=== PATIENT | female | born 1970 | race Hispanic/Latino ===

== ENCOUNTER 2017-05-26 08:17 | Day surgery (SDC) | payer MEDICARE, MEDICAID ==
[2017-05-20 15:27] VITALS: BMI 38.0
[2017-05-26 09:17] VITALS: RESP 14
[2017-05-26] MEDS ORDERED: Propofol 10 mg/ml Inj (20 ML) ONE ×2 (10:45→11:19)
[2017-05-26] MEDS ORDERED: Sodium Chloride 0.9% 1,000 ML IV SCH (11:45)
[2017-05-26 12:05] VITALS: PULSE 72
[2017-05-26 12:41] VITALS: BP 92/54; TEMP 98; O2SAT 99
== END 2017-05-26 13:02 | disposition home or self-care (01) ==
LOC: ENDO 08:17
PROVIDERS: ATTEND Internal Medicine
DX: K64.8 Other hemorrhoids (principal); K59.00 Constipation, unspecified; K30 Functional dyspepsia; R10.9 Unspecified abdominal pain; I10 Essential (primary) hypertension; F41.9 Anxiety disorder, unspecified; G47.30 Sleep apnea, unspecified; F32.89 Other specified depressive episodes; M79.7 Fibromyalgia; K80.80 Other cholelithiasis without obstruction; Z90.710 Acquired absence of both cervix and uterus; Z85.43 Personal history of malignant neoplasm of ovary; Z92.21 Personal history of antineoplastic chemotherapy; Z80.9 Family history of malignant neoplasm, unspecified; Z80.0 Family history of malignant neoplasm of digestive organs
CPT/HCPCS: 45378; J2704; J7040

== ENCOUNTER 2017-12-19 19:12 | Inpatient (IN) | payer MEDICAID, MEDICARE ==
[2017-12-19 19:12] VITALS: BMI 38.0
[2017-12-19] MEDS ORDERED: Morphine 2 mg/ml ISec IVP STA (19:58)
[2017-12-19] MEDS ORDERED: Sodium Chloride 0.9% 1,000 ML IV STA (19:58)
--- NOTE | 2017-12-19 20:01 | ED PDOC ---
Arrival/HPI - General Chief Complaint: Abdominal Pain Time Seen by Provider: 12/19/17 19:46 Historian: Patient - History of Present Illness Narrative History of Present Illness (Text): 12/19/17 19:58 47 year old female, whose past medical history includes ovarian cancer, hypertension, or fibromyalgia, who presents to the emergency department complaining of constant abdominal pain x 2 days. Patient notes associated vomiting. Patient denies any fever, chills, chest pain, shortness of breath, diarrhea, back pain, neck pain, headache, dizziness, or any other complaints. Time/Duration: < week (2 days) Symptom Onset: Gradual Symptom Course: Unchanged Activities at Onset: Light Context: Home Past Medical History - Provider Review Nursing Documentation Reviewed: Yes - Infectious Disease Hx of Infectious Diseases: None - Tetanus Immunization Tetanus Immunization: Up to Date - Cardiac Hx Pacemaker: No - Neurological Hx Paralysis: No - Hematological/Oncological Hx Blood Transfusions: No - Musculoskeletal/Rheumatological Hx Musculoskeletal Disorders: Yes - Gastrointestinal Hx Diverticulitis: Yes - Genitourinary/Gynecological Other/Comment: ovarian ca - Psychiatric Hx Emotional Abuse: No Hx Physical Abuse: No Hx Substance Use: No - Anesthesia Hx Anesthesia Reactions: No Hx Malignant Hyperthermia: No - Suicidal Assessment Feels Threatened In Home Enviroment: No Family/Social History - Physician Review Nursing Documentation Reviewed: Yes Family/Social History: Unknown Family HX Smoking Status: Unknown If Ever Smoked Hx Alcohol Use: No Hx Substance Use: No Hx Substance Use Treatment: No Allergies/Home Meds Allergies/Adverse Reactions: Allergies No Known Allergies Allergy (Verified 06/08/13 12:06) Home Medications: Home Meds Medication Instructions Recorded Confirmed Amitriptyline [Elavil] 50 mg PO DAILY 05/20/17 05/26/17 Clonazepam [Klonopin] 0.5 mg PO HS 05/20/17 05/26/17 DULoxetine [Cymbalta] 20 mg PO DAILY 05/20/17 05/26/17 Estradiol 0.5 mg PO DAILY 05/20/17 05/26/17 Fluticasone Propionate [Flonase] 1 actuation NS DAILY 05/20/17 05/26/17 Gabapentin [Neurontin] 800 mg PO DAILY 05/20/17 05/26/17 Lisinopril/Hydrochlorothiazide 1 each PO DAILY 05/20/17 05/26/17 [Lisinopril-Hctz 10-12.5 mg Tab] Naproxen [Naprosyn] 500 mg PO BID 05/20/17 05/26/17 Omeprazole 40 mg PO DAILY 05/20/17 05/26/17 Review of Systems - Physician Review All systems were reviewed & negative as marked: Yes - Review of Systems Constitutional: Normal Eyes: Normal ENT: Normal Respiratory: Normal. absent: SOB, Cough Cardiovascular: Normal. absent: Chest Pain Gastrointestinal: Abdominal Pain, Vomiting. absent: Diarrhea Genitourinary Female: Normal. absent: Dysuria, Frequency, Hematuria Musculoskeletal: Normal. absent: Back Pain, Neck Pain Skin: Normal. absent: Rash Neurological: Normal. absent: Headache, Dizziness Endocrine: Normal Hemo/Lymphatic: Normal Psychiatric: Normal Physical Exam Vital Signs Reviewed: Yes Vital Signs Temp Pulse Resp BP Pulse Ox 12/19/17 19:42 100.4 F H 105 H 18 109/73 99 Temperature: Febrile Blood Pressure: Normal Pulse: Tachycardic Respiratory Rate: Normal Appearance: Positive for: Well-Appearing, Non-Toxic, Comfortable Pain Distress: None Mental Status: Positive for: Alert and Oriented X 3 - Systems Exam Head: Present: Atraumatic, Normocephalic Pupils: Present: PERRL Extroacular Muscles: Present: EOMI Conjunctiva: Present: Normal Mouth: Present: Moist Mucous Membranes Neck: Present: Normal Range of Motion Respiratory/Chest: Present: Clear to Auscultation, Good Air Exchange. No: Respiratory Distress, Accessory Muscle Use Cardiovascular: Present: Regular Rate and Rhythm, Normal S1, S2. No: Murmurs Abdomen: Present: Tenderness (RUQ tenderness; greater than RLQ). No: Distention, Peritoneal Signs Back: Present: Normal Inspection Upper Extremity: Present: Normal Inspection. No: Cyanosis, Edema Lower Extremity: Present: Normal Inspection. No: Edema Neurological: Present: GCS=15, CN II-XII Intact, Speech Normal Skin: Present: Warm, Dry, Normal Color. No: Rashes Psychiatric: Present: Alert, Oriented x 3, Normal Insight, Normal Concentration Medical Decision Making ED Course and Treatment: 12/19/17 20:02 Impression: 47 year old female presents to the Emergency department complaining of constant abdominal pain x 2 days. Plan: -- VBG -- EKG -- Labs -- Morphine -- Sodium Chloride -- Zofran -- Blood Culture -- Urinalysis -- US gallbladder/Pancreas -- Reassess and disposition Progress Notes: 12/19/17 20:46 EKG reviewed, shows Sinus tachycardia at 102 bpm. Incomplete right bundle branch block. Non-specific ST/T wave changes EXAM: US Gallbladder/pancreas SIGNED ON: 12/19/17 BY: Jimbo Cross M.D. IMPRESSION: Enlarged liver with fatty infiltration. Multiple gallstones present. Calculus suspected neck gallbladder. No significant gallbladder wall thickening or pericholecystic fluid. Clinical correlation advised. 12/20/17 00:47 Case discussed with medical director/head team physician, neurosurgical nurse, and Dr. Mejias who is aware and agrees with the plan. Accepts patient into hospitalist service. - Lab Interpretations I have reviewed the lab results: Yes - RAD Interpretation Radiology Orders: 12/19/17 19:52 CHEST PORTABLE [RAD] Stat GALLBLADDER & PANCREAS [US] Stat - EKG Interpretation Interpreted by ED Physician: Yes Type: 12 lead EKG - Scribe Statement The provider has reviewed the documentation as recorded by the Scribadonis Peña All medical record entries made by the Kathibe were at my direction and personally dictated by me. I have reviewed the chart and agree that the record accurately reflects my personal performance of the history, physical exam, medical decision making, and the department course for this patient. I have also personally directed, reviewed, and agree with the discharge instructions and disposition. Disposition/Present on Arrival - Present on Arrival Any Indicators Present on Arrival: No History of DVT/PE: No History of Uncontrolled Diabetes: No Urinary Catheter: No History of Decub. Ulcer: No History Surgical Site Infection Following: None - Disposition Have Diagnosis and Disposition been Completed?: Yes Diagnosis: Biliary colic, Intractable abdominal pain Disposition: HOSPITALIZED Disposition Time: 01:02 Patient Problems: Current Active Problems Problem Status Onset Biliary colic Acute Intractable abdominal pain Acute Condition: STABLE
[2017-12-19 21:48] LABS: HEMOGLOBIN 11.4 g/dL (12.0-16.0); MEAN CELL VOLUME 85.4 fl (80.0-105.0); MEAN CORPUSCULAR HEMOGLOBIN 28.1 pg (25.0-35.0); MEAN CORPUSCULAR HGB CONC 32.9 g/dl (31.0-37.0); MEAN PLATELET VOLUME 9.4 fl (7.0-11.0); RBC 4.05 10^6/uL (3.5-6.1); RED CELL DISTRIBUTION WIDTH 15.5 % (11.5-14.5); WHITE BLOOD COUNT 7.1 10^3/ul (4.5-11.0)
[2017-12-19 21:54] LABS: ALB/GLOB RATIO 1.3 (1.1-1.8); ALT/SGPT 43 U/L (7-56); AST/SGOT 31 U/L (14-36); BLOOD UREA NITROGEN 21 mg/dL (7-21); CALCIUM 9.5 mg/dL (8.4-10.5); GFR NON-AFRICAN AMERICAN > 60; LIPASE 45 U/L (23-300)
[2017-12-19 22:16] LABS: VENOUS BLOOD GAS BASE EXCESS 4.3 mmol/L (0.0-2.0); VENOUS BLOOD GAS PO2 29 mm/Hg (30-55); VENOUS BLOOD PH 7.41 (7.32-7.43)
[2017-12-19 22:19] LABS: URINE APPEARANCE CLEAR (CLEAR); URINE BILIRUBIN NEGATIVE (NEGATIVE); URINE BLOOD NEGATIVE (NEGATIVE); URINE COLOR LIGHT YELLOW (YELLOW); URINE GLUCOSE (UA) NEGATIVE (NEGATIVE); URINE LEUKOCYTE ESTERASE NEGATIVE Leu/uL (NEGATIVE); URINE PROTEIN TRACE mg/dL (<30 mg/dL); URINE UROBILINOGEN 0.2 E.U./dL (<1 E.U./dL)
[2017-12-19 22:24] LABS: URINE BACTERIA MANY (NEG); URINE RBC 0 - 2 /hpf (0-2)
[2017-12-19 22:25] LABS: URINE AMORPHOUS SEDIMENT FEW; URINE EPITHELIAL CELLS MANY /hpf (0-5)
[2017-12-19] MEDS ORDERED: Potassium Chloride 20 mEq ER Tab PO STA (23:33)
[2017-12-19] MEDS ORDERED: cefTRIAXone 1 gm 1 GM/100 ML BAG IV STA (23:38)
[2017-12-19] MEDS ORDERED: metroNIDAZOLE IV 500 mg/100 ml 500 MG/100 ML BAG IV STA (23:39)
[2017-12-20] MEDS ORDERED: Morphine 4 mg/ml ISec IVP STA (00:53)
[2017-12-20] MEDS ORDERED: Sodium Chloride 0.9% 1,000 ML IV SCH (01:00)
--- NOTE | 2017-12-20 01:32 | CP.PCM.HP ---
History of Present Illness - History of Present Illness History of Present Illness: HISTORY & PHYSICAL NOTE FOR HOSPITALIST TEAM Past Patient History - Infectious Disease Hx of Infectious Diseases: None - Tetanus Immunizations Tetanus Immunization: Up to Date - Past Social History Smoking Status: Unknown If Ever Smoked - CARDIAC Hx Pacemaker: No - NEUROLOGICAL Hx Paralysis: No - HEMATOLOGICAL/ONCOLOGICAL Hx Blood Transfusions: No - MUSCULOSKELETAL/RHEUMATOLOGICAL Hx Musculoskeletal Disorders: Yes - GASTROINTESTINAL Hx Diverticulitis: Yes - GENITOURINARY/GYNECOLOGICAL Other/Comment: ovarian ca - PSYCHIATRIC Hx Emotional Abuse: No Hx Physical Abuse: No Hx Substance Use: No - SURGICAL HISTORY Hx Surgeries: Yes - ANESTHESIA Hx Anesthesia Reactions: No Hx Malignant Hyperthermia: No Meds Allergies/Adverse Reactions: Allergies Allergy/AdvReac Type Severity Reaction Status Date / Time No Known Allergies Allergy Verified 06/08/13 12:06 Results - Vital Signs Recent Vital Signs: Last Vital Signs Temp 100.4 F H 12/19/17 19:42 Pulse 105 H 12/19/17 19:42 Resp 18 12/19/17 19:42 BP 109/73 12/19/17 19:42 Pulse Ox 99 12/19/17 19:42 - Labs Result Diagrams: 12/19/17 20:30 12/19/17 20:30 Labs: Laboratory Results - last 24 hr 12/19/17 12/19/17 12/19/17 20:30 20:30 20:30 WBC 7.1 RBC 4.05 Hgb 11.4 L Hct 34.6 L MCV 85.4 D MCH 28.1 MCHC 32.9 RDW 15.5 H Plt Count 198 MPV 9.4 pO2 29 L VBG pH 7.41 VBG pCO2 47.0 VBG HCO3 29.8 H VBG Total CO2 31.2 H VBG O2 Sat (Calc) 61.7 VBG Base Excess 4.3 H VBG Potassium 3.5 L Sodium 137 137.0 Chloride 100 104.0 Glucose 99 Lactate 1.4 FiO2 21.0 Potassium 3.4 L Carbon Dioxide 29 Anion Gap 11 BUN 21 Creatinine 0.7 Est GFR ( Amer) > 60 Est GFR (Non-Af Amer) > 60 Random Glucose 100 Calcium 9.5 Total Bilirubin 0.5 AST 31 ALT 43 Alkaline Phosphatase 71 Total Protein 7.1 Albumin 4.0 Globulin 3.1 Albumin/Globulin Ratio 1.3 Lipase 45 Venous Blood Potassium 3.5 L Urine Color Urine Appearance Urine pH Ur Specific [place] Urine Protein Urine Glucose (UA) Urine Ketones Urine Blood Urine Nitrate Urine Bilirubin Urine Urobilinogen Ur Leukocyte Esterase Urine RBC Urine WBC Ur Epithelial Cells Amorphous Sediment Urine Bacteria Urine Other 12/19/17 21:30 WBC RBC Hgb Hct MCV MCH MCHC RDW Plt Count MPV pO2 VBG pH VBG pCO2 VBG HCO3 VBG Total CO2 VBG O2 Sat (Calc) VBG Base Excess VBG Potassium Sodium Chloride Glucose Lactate FiO2 Potassium Carbon Dioxide Anion Gap BUN Creatinine Est GFR ( Amer) Est GFR (Non-Af Amer) Random Glucose Calcium Total Bilirubin AST ALT Alkaline Phosphatase Total Protein Albumin Globulin Albumin/Globulin Ratio Lipase Venous Blood Potassium Urine Color Light yellow Urine Appearance Clear Urine pH 7.0 Ur Specific [place] 1.010 Urine Protein Trace H Urine Glucose (UA) Negative Urine Ketones Negative Urine Blood Negative Urine Nitrate Negative Urine Bilirubin Negative Urine Urobilinogen 0.2 Ur Leukocyte Esterase Negative Urine RBC 0 - 2 Urine WBC 1 - 3 Ur Epithelial Cells Many Amorphous Sediment Few Urine Bacteria Many Urine Other Uyeast
--- NOTE | 2017-12-20 01:47 | CP.PCM.HP ---
<Aruna Cleary - Last Filed: 12/20/17 03:03> History of Present Illness - History of Present Illness History of Present Illness: HISTORY & PHYSICAL NOTE FOR HOSPITALIST TEAM Aruna Cleary D.O. PGY-1 CC: Severe RUQ pain since yesterday HPI: 47 y/o F with PMHx of PMHx ovarian cancer in 1999 s/p chemotherapy, previous post-op complications of excessive bleeding, HTN & fibromyalgia presents to [facility] with complaints of severe, intractable, constant, 10/10 RUQ abdominal pain that had started yesterday not alleviated by anything. She reports never having this specific kind of pain previously. She reports that she had a radical hysterectomy in 2001 when she suffered post-op complications for "blood too thin" and the hospital staff at [facility] in [place] needed to "call a code". She reports nausea and vomiting with about 10 episodes of yellowish vomiting yesterday. She endorses chills and previous substernal chest pain without radiation or associated diaphoresis. She also reports 50 pounds of intentional weight loss over the past month as well as constipation. She has been followin with her PMD and child care development specialist, with followup CA-125 levels without elevations. She denies chills, headache, palpitations, shortness of breath, diarrhea, dysuria. PMD: Dr. Ping soto PMH: ovarian cancer in 1999 s/p chemotherapy, previous post-op complications of excessive bleeding, HTN & fibromyalgia ALL: NKDA PSH: radical hysterectomy 2001, umbilical hernia repair, inguinal hernia repair SH: former 1 pack year smoker. occasional alcohol use Hosp: denies recent FH: Mother- stomach cancer 75 y/o, Father- Pancreatic cancer- 74 y/[address] Abdomen: IMPRESSION: Enlarged liver with fatty infiltration. Multiple gall stones present. Calculus suspected neck gallbladder. No significant gallbladder wall thickening or pericholecystic fluid. Clinical correlation advised. Review of Systems - Review of Systems Review of Systems: as per HPI Past Patient History - Infectious Disease Hx of Infectious Diseases: None - Tetanus Immunizations Tetanus Immunization: Up to Date - Past Social History Smoking Status: Unknown If Ever Smoked - CARDIAC Hx Pacemaker: No - NEUROLOGICAL Hx Paralysis: No - HEMATOLOGICAL/ONCOLOGICAL Hx Blood Transfusions: No - MUSCULOSKELETAL/RHEUMATOLOGICAL Hx Musculoskeletal Disorders: Yes - GASTROINTESTINAL Hx Diverticulitis: Yes - GENITOURINARY/GYNECOLOGICAL Other/Comment: ovarian ca - PSYCHIATRIC Hx Emotional Abuse: No Hx Physical Abuse: No Hx Substance Use: No - SURGICAL HISTORY Hx Surgeries: Yes - ANESTHESIA Hx Anesthesia Reactions: No Hx Malignant Hyperthermia: No Meds Allergies/Adverse Reactions: Allergies Allergy/AdvReac Type Severity Reaction Status Date / Time No Known Allergies Allergy Verified 06/08/13 12:06 Physical Exam - Constitutional Appears: Well, Non-toxic, No Acute Distress - Head Exam Head Exam: NORMAL INSPECTION, NORMOCEPHALIC - Eye Exam Eye Exam: EOMI, Normal appearance - ENT Exam ENT Exam: Mucous Membranes Moist, Normal Exam - Neck Exam Neck exam: Positive for: Normal Inspection. Negative for: Meningismus - Respiratory Exam Respiratory Exam: Clear to Auscultation Bilateral, NORMAL BREATHING PATTERN - Cardiovascular Exam Cardiovascular Exam: Tachycardia, +S1, +S2 - GI/Abdominal Exam GI & Abdominal Exam: Distended, Guarding, Soft, Tenderness Additional comments: + robertson sign - Extremities Exam Extremities exam: Positive for: normal inspection. Negative for: calf tenderness - Back Exam Back exam: CVA tenderness (R), NORMAL INSPECTION. absent: CVA tenderness (L) - Neurological Exam Neurological exam: Alert, Oriented x3 - Psychiatric Exam Psychiatric exam: Normal Affect, Normal Mood - Skin Skin Exam: Dry, Intact, Warm Results - Vital Signs Recent Vital Signs: Last Vital Signs Temp 100.4 F H 12/19/17 19:42 Pulse 105 H 12/19/17 19:42 Resp 18 12/19/17 19:42 BP 109/73 12/19/17 19:42 Pulse Ox 99 12/19/17 19:42 - Labs Result Diagrams: 12/19/17 20:30 12/19/17 20:30 Labs: Laboratory Results - last 24 hr 12/19/17 12/19/17 12/19/17 20:30 20:30 20:30 WBC 7.1 RBC 4.05 Hgb 11.4 L Hct 34.6 L MCV 85.4 D MCH 28.1 MCHC 32.9 RDW 15.5 H Plt Count 198 MPV 9.4 pO2 29 L VBG pH 7.41 VBG pCO2 47.0 VBG HCO3 29.8 H VBG Total CO2 31.2 H VBG O2 Sat (Calc) 61.7 VBG Base Excess 4.3 H VBG Potassium 3.5 L Sodium 137 137.0 Chloride 100 104.0 Glucose 99 Lactate 1.4 FiO2 21.0 Potassium 3.4 L Carbon Dioxide 29 Anion Gap 11 BUN 21 Creatinine 0.7 Est GFR ( Amer) > 60 Est GFR (Non-Af Amer) > 60 Random Glucose 100 Calcium 9.5 Total Bilirubin 0.5 AST 31 ALT 43 Alkaline Phosphatase 71 Total Protein 7.1 Albumin 4.0 Globulin 3.1 Albumin/Globulin Ratio 1.3 Lipase 45 Venous Blood Potassium 3.5 L Urine Color Urine Appearance Urine pH Ur Specific [place] Urine Protein Urine Glucose (UA) Urine Ketones Urine Blood Urine Nitrate Urine Bilirubin Urine Urobilinogen Ur Leukocyte Esterase Urine RBC Urine WBC Ur Epithelial Cells Amorphous Sediment Urine Bacteria Urine Other 12/19/17 21:30 WBC RBC Hgb Hct MCV MCH MCHC RDW Plt Count MPV pO2 VBG pH VBG pCO2 VBG HCO3 VBG Total CO2 VBG O2 Sat (Calc) VBG Base Excess VBG Potassium Sodium Chloride Glucose Lactate FiO2 Potassium Carbon Dioxide Anion Gap BUN Creatinine Est GFR ( Amer) Est GFR (Non-Af Amer) Random Glucose Calcium Total Bilirubin AST ALT Alkaline Phosphatase Total Protein Albumin Globulin Albumin/Globulin Ratio Lipase Venous Blood Potassium Urine Color Light yellow Urine Appearance Clear Urine pH 7.0 Ur Specific [place] 1.010 Urine Protein Trace H Urine Glucose (UA) Negative Urine Ketones Negative Urine Blood Negative Urine Nitrate Negative Urine Bilirubin Negative Urine Urobilinogen 0.2 Ur Leukocyte Esterase Negative Urine RBC 0 - 2 Urine WBC 1 - 3 Ur Epithelial Cells Many Amorphous Sediment Few Urine Bacteria Many Urine Other Uyeast Assessment & Plan - Assessment and Plan (Free Text) Assessment: 47 y/o F with PMHx of PMHx ovarian cancer in 1999 s/p chemotherapy, previous post-op complications of excessive bleeding, HTN & fibromyalgia presents to [facility] with complaints of severe, intractable, constant, 10/10 abdominal pain, most notably in the RUQ. Pt was found to have multiple gallstones present with a calculus suspected neck gallbladder. No significant gallbladder wall thickening or pericholecystic fluid. In the ED, she was started on rocephin/flagyl, morphine, zofran and a bolus of NS. Oral potassium was given for repletion. Surgery team was consulted, who recommended CT abdomen for further evaluation. Pt on NPO diet and admitted to med/surg. Plan: Abdominal Pain Likely secondary to cholelithiasis r/o hernia incarceration/SBO/perforation Start rocephin/flagyl for empiric coverage [place] morphine deric prn Start zofran IVP prn Continue NaCl @100mls/hr NPO diet except meds f/u CT abdomen f/u HIDA scan Consult surgery. Appreciate recs Consult GI. Appreciate recs Hypokalemia repleted po in ED Start IV KCl 10meq x 2 f/u BMP Constipation start colace bid HTN continue home lisinopril/hctz DVT/GI ppx: Hold anticoagulant for possible surgery. SCD/ <RandellMarimarda - Last Filed: 12/20/17 03:13> Present on Admission - Present on Admission Any Indicators Present on Admission: No History of DVT/PE: No History of Uncontrolled Diabetes: No Urinary Catheter: No Decubitus Ulcer Present: No Results - Vital Signs Recent Vital Signs: Last Vital Signs Temp 98 F 12/20/17 02:04 Pulse 98 H 12/20/17 02:04 Resp 18 12/20/17 02:04 BP 100/65 12/20/17 02:04 Pulse Ox 96 12/20/17 02:04 - Labs Result Diagrams: 12/19/17 20:30 12/19/17 20:30 Labs: Laboratory Results - last 24 hr 12/19/17 12/19/17 12/19/17 20:30 20:30 20:30 WBC 7.1 RBC 4.05 Hgb 11.4 L Hct 34.6 L MCV 85.4 D MCH 28.1 MCHC 32.9 RDW 15.5 H Plt Count 198 MPV 9.4 pO2 29 L VBG pH 7.41 VBG pCO2 47.0 VBG HCO3 29.8 H VBG Total CO2 31.2 H VBG O2 Sat (Calc) 61.7 VBG Base Excess 4.3 H VBG Potassium 3.5 L Sodium 137 137.0 Chloride 100 104.0 Glucose 99 Lactate 1.4 FiO2 21.0 Potassium 3.4 L Carbon Dioxide 29 Anion Gap 11 BUN 21 Creatinine 0.7 Est GFR ( Amer) > 60 Est GFR (Non-Af Amer) > 60 Random Glucose 100 Calcium 9.5 Total Bilirubin 0.5 AST 31 ALT 43 Alkaline Phosphatase 71 Total Protein 7.1 Albumin 4.0 Globulin 3.1 Albumin/Globulin Ratio 1.3 Lipase 45 Venous Blood Potassium 3.5 L Urine Color Urine Appearance Urine pH Ur Specific [place] Urine Protein Urine Glucose (UA) Urine Ketones Urine Blood Urine Nitrate Urine Bilirubin Urine Urobilinogen Ur Leukocyte Esterase Urine RBC Urine WBC Ur Epithelial Cells Amorphous Sediment Urine Bacteria Urine Other 12/19/17 21:30 WBC RBC Hgb Hct MCV MCH MCHC RDW Plt Count MPV pO2 VBG pH VBG pCO2 VBG HCO3 VBG Total CO2 VBG O2 Sat (Calc) VBG Base Excess VBG Potassium Sodium Chloride Glucose Lactate FiO2 Potassium Carbon Dioxide Anion Gap BUN Creatinine Est GFR ( Amer) Est GFR (Non-Af Amer) Random Glucose Calcium Total Bilirubin AST ALT Alkaline Phosphatase Total Protein Albumin Globulin Albumin/Globulin Ratio Lipase Venous Blood Potassium Urine Color Light yellow Urine Appearance Clear Urine pH 7.0 Ur Specific [place] 1.010 Urine Protein Trace H Urine Glucose (UA) Negative Urine Ketones Negative Urine Blood Negative Urine Nitrate Negative Urine Bilirubin Negative Urine Urobilinogen 0.2 Ur Leukocyte Esterase Negative Urine RBC 0 - 2 Urine WBC 1 - 3 Ur Epithelial Cells Many Amorphous Sediment Few Urine Bacteria Many Urine Other [place] Attending/Attestation - Attestation Notes (Text): 12/20/17 03:08 Patient was seen when she was in bed # 2 in the ER. Medical record was reviewed. Agree with history, physical examination, assessment and plan. This 47 year old woman admitted with Abdominal pain-RUQ. Chills Cholelithiasis A cholecystitis Has PMH: HTN FIBROMYALGIA OVARIAN CANCER S/P surgery S/p chemotherapy Anxiety EVA Depression Former smoker. Hystrectomy-2001 Herniorrhaphy. Family history -Pancreatic cancer-Father Family history stomach cancer-Mother.
[2017-12-20] MEDS ORDERED: Iohexol 240 (50 ml) ONE (02:34)
--- NOTE | 2017-12-20 02:50 | CP.PCM.CON ---
<Ric Mccarthy - Last Filed: 12/20/17 02:35> History of Present Illness - History of Present Illness History of Present Illness: General Surgery Consult Note for Dr. Gonzalez This is a 47F with a PMH of Fibromyalgia, Ovarian CA, Gastritis, and HTN who presents to the ED today with abdominal pain since thursday. She reports that it woke her up from sleep at 4am. She reports nothing has mad it better and nothing has made it worse. She reports that when the pain started it was associated with nausea and vomiting however she has not had any emesis since it started. Her last BM and flatus was thursday. She reports this has never happened to her before. She denied subjective fevers at home, chest pain or SOB. In the ED pt underwent a CXR which was negative for subdiaphragmatic air and an US that was significant for GB stones PMH: Fibromyalgia, Ovarian CA, Gastritis, and HTN PSH: Total abdominal hysterectomy/oopherectomy ALL: NKDA Social: Denies vices Review of Systems - Review of Systems All systems: reviewed and no additional remarkable complaints except - Constitutional Constitutional: Anorexia. absent: Chills, Fever - EENT Eyes: absent: Blurred Vision, Change in Vision Ears: absent: Ear Pain, Tinnitus - Cardiovascular Cardiovascular: absent: Chest Pain, Dyspnea - Respiratory Respiratory: absent: Dyspnea, Dyspnea on Exertion - Gastrointestinal Gastrointestinal: Abdominal Pain, Nausea. absent: Cramping, Diarrhea, Vomiting - Genitourinary Genitourinary: absent: Difficulty Urinating, Dysuria, Hematuria, Pyuria - Integumentary Integumentary: absent: Bleeding Lesions Past Patient History - Infectious Disease Hx of Infectious Diseases: None - Tetanus Immunizations Tetanus Immunization: Up to Date - Past Social History Smoking Status: Unknown If Ever Smoked - CARDIAC Hx Pacemaker: No - NEUROLOGICAL Hx Paralysis: No - HEMATOLOGICAL/ONCOLOGICAL Hx Blood Transfusions: No - MUSCULOSKELETAL/RHEUMATOLOGICAL Hx Musculoskeletal Disorders: Yes - GASTROINTESTINAL Hx Diverticulitis: Yes - GENITOURINARY/GYNECOLOGICAL Other/Comment: ovarian ca - PSYCHIATRIC Hx Emotional Abuse: No Hx Physical Abuse: No Hx Substance Use: No - SURGICAL HISTORY Hx Surgeries: Yes - ANESTHESIA Hx Anesthesia Reactions: No Hx Malignant Hyperthermia: No Meds Allergies/Adverse Reactions: Allergies Allergy/AdvReac Type Severity Reaction Status Date / Time No Known Allergies Allergy Verified 06/08/13 12:06 - Medications Medications: Current Medications Docusate Sodium (Colace) 100 mg PO BID [facility] Sodium Chloride (Sodium Chloride 0.9%) 1,000 mls @ 100 mls/hr IV .Q10H [facility] Metronidazole (Flagyl) 500 mg in 100 mls @ 100 mls/hr IVPB Q8 [facility]; Protocol Potassium Chloride (Potassium Chloride 10 Meq/100 Ml) 10 meq in 100 mls @ 50 mls/hr IVPB Q2H [facility] Stop: 12/20/17 05:44 Morphine Sulfate (Morphine) 2 mg IVP Q4H PRN PRN Reason: Pain, moderate (4-7) Ondansetron HCl (Zofran Inj) 4 mg IVP Q4H PRN PRN Reason: Nausea/Vomiting Last Admin: 12/20/17 01:57 Dose: 4 mg Physical Exam - Constitutional Appears: Non-toxic, No Acute Distress - Head Exam Head Exam: ATRAUMATIC, NORMOCEPHALIC - Eye Exam Eye Exam: EOMI, Normal appearance - ENT Exam ENT Exam: Mucous Membranes Moist - Respiratory Exam Respiratory Exam: NORMAL BREATHING PATTERN - Cardiovascular Exam Cardiovascular Exam: +S1, +S2 - GI/Abdominal Exam GI & Abdominal Exam: Distended, Soft. absent: Guarding, Hernia, Rigid Additional comments: Midline scar, diffusely tender most tender over epigastrium and right side of abdomen, CVA tenderness, softly distended - Neurological Exam Neurological exam: Alert, Oriented x3 - Psychiatric Exam Psychiatric exam: Normal Affect, Normal Mood - Skin Skin Exam: Dry, Intact Results - Vital Signs Recent Vital Signs: Last Vital Signs Temp 98 F 12/20/17 02:04 Pulse 98 H 12/20/17 02:04 Resp 18 12/20/17 02:04 BP 100/65 12/20/17 02:04 Pulse Ox 96 12/20/17 02:04 - Labs Result Diagrams: 12/19/17 20:30 12/19/17 20:30 Labs: Laboratory Results - last 24 hr 12/19/17 12/19/17 12/19/17 20:30 20:30 20:30 WBC 7.1 RBC 4.05 Hgb 11.4 L Hct 34.6 L MCV 85.4 D MCH 28.1 MCHC 32.9 RDW 15.5 H Plt Count 198 MPV 9.4 pO2 29 L VBG pH 7.41 VBG pCO2 47.0 VBG HCO3 29.8 H VBG Total CO2 31.2 H VBG O2 Sat (Calc) 61.7 VBG Base Excess 4.3 H VBG Potassium 3.5 L Sodium 137 137.0 Chloride 100 104.0 Glucose 99 Lactate 1.4 FiO2 21.0 Potassium 3.4 L Carbon Dioxide 29 Anion Gap 11 BUN 21 Creatinine 0.7 Est GFR ( Amer) > 60 Est GFR (Non-Af Amer) > 60 Random Glucose 100 Calcium 9.5 Total Bilirubin 0.5 AST 31 ALT 43 Alkaline Phosphatase 71 Total Protein 7.1 Albumin 4.0 Globulin 3.1 Albumin/Globulin Ratio 1.3 Lipase 45 Venous Blood Potassium 3.5 L Urine Color Urine Appearance Urine pH Ur Specific [place] Urine Protein Urine Glucose (UA) Urine Ketones Urine Blood Urine Nitrate Urine Bilirubin Urine Urobilinogen Ur Leukocyte Esterase Urine RBC Urine WBC Ur Epithelial Cells Amorphous Sediment Urine Bacteria Urine Other 12/19/17 21:30 WBC RBC Hgb Hct MCV MCH MCHC RDW Plt Count MPV pO2 VBG pH VBG pCO2 VBG HCO3 VBG Total CO2 VBG O2 Sat (Calc) VBG Base Excess VBG Potassium Sodium Chloride Glucose Lactate FiO2 Potassium Carbon Dioxide Anion Gap BUN Creatinine Est GFR ( Amer) Est GFR (Non-Af Amer) Random Glucose Calcium Total Bilirubin AST ALT Alkaline Phosphatase Total Protein Albumin Globulin Albumin/Globulin Ratio Lipase Venous Blood Potassium Urine Color Light yellow Urine Appearance Clear Urine pH 7.0 Ur Specific [place] 1.010 Urine Protein Trace H Urine Glucose (UA) Negative Urine Ketones Negative Urine Blood Negative Urine Nitrate Negative Urine Bilirubin Negative Urine Urobilinogen 0.2 Ur Leukocyte Esterase Negative Urine RBC 0 - 2 Urine WBC 1 - 3 Ur Epithelial Cells Many Amorphous Sediment Few Urine Bacteria Many Urine Other [facility] - Imaging and Cardiology US - abdomen Status: Image reviewed by me Assessment & Plan - Assessment and Plan (Free Text) Assessment: This is a 47F with abdominal pain Abd US significant for stones normal wall and CBD, increased LFTs Lipase Normal, No lactate No Free air under the diaphram on CXR Plan: NPO IVF: LR @ 130 F/U CT with PO and IV contrast F/U HIDA F/U GI Further Recs per Dr. Carlos Mccarthy PGY3 <Elia Gonzalez - Last Filed: 12/20/17 18:44> Meds - Medications Medications: Current Medications Docusate Sodium (Colace) 100 mg PO BID [facility] Last Admin: 12/20/17 18:28 Dose: 100 mg Enoxaparin Sodium (Lovenox) 40 mg SC DAILY [facility]; Protocol Stop: 12/20/17 23:00 Last Admin: 12/20/17 11:03 Dose: 40 mg Metronidazole (Flagyl) 500 mg in 100 mls @ 100 mls/hr IVPB Q8 [facility]; Protocol Last Admin: 12/20/17 13:26 Dose: 100 mls/hr Lactated Ringer's (Lactated Ringer's) 1,000 mls @ 130 mls/hr IV .Q7H42M [facility] Stop: 12/22/17 16:32 Last Admin: 12/20/17 13:36 Dose: 130 mls/hr Ceftriaxone Sodium (Rocephin 1 Gram Ivpb) 1 gm in 100 mls @ 100 mls/hr IVPB DAILY [facility]; Protocol Lisinopril (Zestril) 10 mg PO DAILY [facility] Last Admin: 12/20/17 11:03 Dose: Not Given Morphine Sulfate (Morphine) 2 mg IVP Q4H PRN PRN Reason: Pain, moderate (4-7) Last Admin: 12/20/17 13:25 Dose: 2 mg Ondansetron HCl (Zofran Inj) 4 mg IVP Q4H PRN PRN Reason: Nausea/Vomiting Last Admin: 12/20/17 01:57 Dose: 4 mg Pantoprazole Sodium (Protonix Inj) 40 mg IVP DAILY [facility] Last Admin: 12/20/17 11:02 Dose: 40 mg Results - Vital Signs Recent Vital Signs: Last Vital Signs Temp 99.9 F H 12/20/17 17:02 Pulse 95 H 12/20/17 17:02 Resp 20 12/20/17 17:02 BP 99/62 L 12/20/17 17:02 Pulse Ox 98 12/20/17 17:02 - Labs Result Diagrams: 12/20/17 05:00 12/20/17 05:00 Labs: Laboratory Results - last 24 hr 12/19/17 12/19/17 12/19/17 20:30 20:30 20:30 WBC 7.1 RBC 4.05 Hgb 11.4 L Hct 34.6 L MCV 85.4 D MCH 28.1 MCHC 32.9 RDW 15.5 H Plt Count 198 MPV 9.4 Gran % Lymph % (Auto) [place] % (Auto) Eos % (Auto) Baso % (Auto) Gran # Lymph # (Auto) [place] # (Auto) Eos # (Auto) Baso # (Auto) pO2 29 L VBG pH 7.41 VBG pCO2 47.0 VBG HCO3 29.8 H VBG Total CO2 31.2 H VBG O2 Sat (Calc) 61.7 VBG Base Excess 4.3 H VBG Potassium 3.5 L Sodium 137 137.0 Chloride 100 104.0 Glucose 99 Lactate 1.4 FiO2 21.0 Potassium 3.4 L Carbon Dioxide 29 Anion Gap 11 BUN 21 Creatinine 0.7 Est GFR ( Amer) > 60 Est GFR (Non-Af Amer) > 60 Random Glucose 100 Calcium 9.5 Phosphorus Magnesium Total Bilirubin 0.5 AST 31 ALT 43 Alkaline Phosphatase 71 Total Protein 7.1 Albumin 4.0 Globulin 3.1 Albumin/Globulin Ratio 1.3 Lipase 45 Venous Blood Potassium 3.5 L Urine Color Urine Appearance Urine pH Ur Specific [place] Urine Protein Urine Glucose (UA) Urine Ketones Urine Blood Urine Nitrate Urine Bilirubin Urine Urobilinogen Ur Leukocyte Esterase Urine RBC Urine WBC Ur Epithelial Cells Amorphous Sediment Urine Bacteria Urine Other 12/19/17 12/20/17 12/20/17 21:30 05:00 05:00 WBC 6.1 RBC 3.72 Hgb 10.3 L Hct 31.7 L MCV 85.2 MCH 27.7 MCHC 32.5 RDW 15.8 H Plt Count 164 MPV 9.0 Gran % 51.5 Lymph % (Auto) 36.0 H [place] % (Auto) 8.7 H Eos % (Auto) 3.6 Baso % (Auto) 0.2 Gran # 3.14 Lymph # (Auto) 2.2 [place] # (Auto) 0.5 Eos # (Auto) 0.2 Baso # (Auto) 0.01 pO2 VBG pH VBG pCO2 VBG HCO3 VBG Total CO2 VBG O2 Sat (Calc) VBG Base Excess VBG Potassium Sodium 136 Chloride 105 Glucose Lactate FiO2 Potassium 4.0 Carbon Dioxide 28 Anion Gap 11 BUN 16 Creatinine 0.7 Est GFR ( Amer) > 60 Est GFR (Non-Af Amer) > 60 Random Glucose 101 Calcium 8.7 Phosphorus 3.0 Magnesium 1.8 Total Bilirubin 0.6 AST 128 H D ALT 86 H Alkaline Phosphatase 97 Total Protein 6.2 Albumin 3.3 Globulin 2.9 Albumin/Globulin Ratio 1.2 Lipase Venous Blood Potassium Urine Color Light yellow Urine Appearance Clear Urine pH 7.0 Ur Specific [place] 1.010 Urine Protein Trace H Urine Glucose (UA) Negative Urine Ketones Negative Urine Blood Negative Urine Nitrate Negative Urine Bilirubin Negative Urine Urobilinogen 0.2 Ur Leukocyte Esterase Negative Urine RBC 0 - 2 Urine WBC 1 - 3 Ur Epithelial Cells Many Amorphous Sediment Few Urine Bacteria Many Urine Other [facility] Assessment & Plan - Assessment and Plan (Free Text) Plan: I personally saw and examined the patient with the resident staff and agree with the above assessment and plan. I personally reviewed the available diagnostic images and imaging reports. 47 Female, morbid obesity, hx of fibromyalgia, EMELY/BSO and open VHR with mesh several years ago now with with acute cholecystitis. RUQ confirms stones, CT shows large dilated and inflamed gallbladder. Tender in RUQ and epigastrium. Continue NPO. Replete electrolytes. Medical clearance. Rec lap cholecystectomy. Risks and benefits of surgery, including but not limited to, bleeding, wound infection, bile leak, bile duct injury, bowel injury, and need for open surgery discussed with patient and her at bedside. All questions answered. Added on for OR tomorrow.
[2017-12-20] MEDS: Lactated Ringer's 1,000 ML IV SCH ×2 (03:35→13:36)
[2017-12-20] MEDS: metroNIDAZOLE IV 500 mg/100 ml 500 MG/100 ML BAG IVPB SCH ×3 (05:31→21:33)
[2017-12-20] MEDS ORDERED: Iohexol 350 MG/100 ML VIAL ONE (06:39)
[2017-12-20] MEDS: Morphine 2 mg/ml ISec IVP PRN ×4 (07:05→23:31)
[2017-12-20 07:43] LABS: BASO # 0.01 K/mm3 (0.0-2.0); BASO % 0.2 % (0.0-3.0); EOS # 0.2 (0.0-0.7); EOS % 3.6 % (1.5-5.0); GRAN # 3.14 (1.4-6.5); GRAN % 51.5 % (50.0-68.0); HEMOGLOBIN 10.3 g/dL (12.0-16.0); LYMPH # 2.2 (1.2-3.4); MEAN CELL VOLUME 85.2 fl (80.0-105.0); MEAN CORPUSCULAR HEMOGLOBIN 27.7 pg (25.0-35.0); MEAN CORPUSCULAR HGB CONC 32.5 g/dl (31.0-37.0); MONO # 0.5 (0.1-0.6); MONO % 8.7 % (1.0-6.0); RBC 3.72 10^6/uL (3.5-6.1); RED CELL DISTRIBUTION WIDTH 15.8 % (11.5-14.5); WHITE BLOOD COUNT 6.1 10^3/ul (4.5-11.0)
[2017-12-20 08:48] LABS: ALB/GLOB RATIO 1.2 (1.1-1.8); ALBUMIN 3.3 g/dL (3.0-4.8); ALT/SGPT 86 U/L (7-56); AST/SGOT 128 U/L (14-36); BLOOD UREA NITROGEN 16 mg/dL (7-21); CALCIUM 8.7 mg/dL (8.4-10.5); GFR NON-AFRICAN AMERICAN > 60
--- NOTE | 2017-12-20 10:27 | RAD ---
Date of service: 12/19/2017 HISTORY: abdominal pain COMPARISON: 06/08/2013 FINDINGS: LUNGS: No active pulmonary disease. PLEURA: No significant pleural effusion identified, no pneumothorax apparent. CARDIOVASCULAR: Normal. OSSEOUS STRUCTURES: No significant abnormalities. VISUALIZED UPPER ABDOMEN: Normal. OTHER FINDINGS: None. IMPRESSION: No active disease.
[2017-12-20] MEDS ORDERED: Enoxaparin 40 mg Syringe SC SCH (10:30)
--- NOTE | 2017-12-20 13:00 | CARD ---
APPROVED REPORT Date of service: 12/19/2017 EKG Measurement Heart [id number] <Conclusion> Sinus tachycardia Incomplete right bundle branch block Borderline ECG
--- NOTE | 2017-12-20 15:52 | CT ---
Date of service: 12/20/2017 PROCEDURE: CT Abdomen and Pelvis with contrast HISTORY: abdominal pain COMPARISON: 05/28/2017 TECHNIQUE: Contrast dose: 100 cc of Omni 350 Radiation dose: Total exam DLP = 1024 mGy-cm. This CT exam was performed using one or more of the following dose reduction techniques: Automated exposure control, adjustment of the mA and/or kV according to patient size, and/or use of iterative reconstruction technique. FINDINGS: LOWER THORAX: Linear infiltrates are seen at the left lung base consistent with atelectasis. Developing pneumonia less likely LIVER: Fatty infiltration of the liver GALLBLADDER AND BILE DUCTS: Inflammatory changes are seen around the gallbladder consistent with acute cholecystitis. PANCREAS: Unremarkable. No gross lesion or ductal dilatation. SPLEEN: Unremarkable. ADRENALS: Unremarkable. No mass. KIDNEYS AND URETERS: Unremarkable. No hydronephrosis. No solid mass. VASCULATURE: Unremarkable. No aortic aneurysm. BOWEL: Unremarkable. No obstruction. No gross mural thickening. APPENDIX: Normal appendix. PERITONEUM: Minimal ascites in the pelvis LYMPH NODES: Unremarkable. No enlarged lymph nodes. BLADDER: Unremarkable. REPRODUCTIVE: Unremarkable. BONES: No acute fracture. OTHER FINDINGS: The report concurs with the preliminary [facility] report IMPRESSION: Acute cholecystitis. Linear bibasilar infiltrates most consistent with atelectasis versus pneumonia
--- NOTE | 2017-12-20 16:34 | US ---
Date of service: 12/19/2017 HISTORY: abdominal pain COMPARISON: None. TECHNIQUE: Sonographic evaluation of the right upper quadrant of the abdomen. FINDINGS: LIVER: Measures 21 cm in length. Normal echogenicity of the liver parenchyma. No mass. No intrahepatic bile duct dilatation. GALLBLADDER: Multiple gallstones including a stone in the neck of the gallbladder. There is focal tenderness. COMMON BILE DUCT: Measures 6 mm. No stones. No dilatation. PANCREAS: Unremarkable as visualized. No mass. No ductal dilatation. RIGHT KIDNEY: Measures 10.9 x 4.4 x 4.7 cm in length. Normal echogenicity. No calculus, mass, or hydronephrosis. AORTA: No aneurysmal dilatation. IVC: Unremarkable. OTHER FINDINGS: None . IMPRESSION: Gallstones with focal tenderness suspicious for cholecystitis
--- NOTE | 2017-12-20 23:32 | CON ---
DATE: 12/20/2017 HISTORY OF PRESENT ILLNESS: I saw Ms. Flores this morning. She is a 47-year-old female with past medical history of treated ovarian cancer, status post successful treatment. Medical history includes hypertension, fibromyalgia. She indicated complaints of severe abdominal pain, right upper quadrant, started about a day and half prior to admission. This is the first time she has experienced this. There is no hematemesis or rectal bleeding. Pain was under the costal area on the right side with pain radiation to the back. There is no change in her urine color. PHYSICAL EXAMINATION: VITAL SIGNS: I reviewed this patient's vital signs. HEENT: Noncontributory. LUNGS: Clear to auscultation. HEART: Regular rhythm. ABDOMEN: Mildly distended. She is tender in the epigastric area as well as in the right upper quadrant. Somewhat distended in the area of the right paraumbilical, but nontender in the left upper quadrant, left lower quadrant, or suprapubic. LABORATORY DATA: I reviewed this patient's CT scan images, but the CT is currently uninterpreted by radiologist. At least one of the CT is significant for a thick-walled gallbladder with pericholecystic fluid, numerous stones. Gallbladder is distended. The wall of the proximal small bowel appears more thick than usual. The colonic segments appear to be within normal limits. Review of laboratory data indicated white count of 7 with an H and H of 11 and 34. Chemistry is noncontributory except for a K of 3.4. Note that the patient's gallbladder ultrasound was significant for gallstones. OVERALL ASSESSMENT: This is a 47-year-old female admitted with complaints of right upper quadrant pain, most probably due to biliary colic. Note that there is no family history of gallbladder disease in her family. According to the images, the gallbladder is distended and the patient needs a surgical input as far as timing for surgical procedure. Note that the patient's biliary labs are within normal limits. A HIDA scan is pending for this morning. The patient is currently on antibiotic therapy in the form of metronidazole and ceftrixone antibiotic therapy. Further follow up by Surgery is pending for this morning. Ramses Ruiz DO, PhD [facility] # [id number] [place]
[2017-12-21] MEDS: metroNIDAZOLE IV 500 mg/100 ml 500 MG/100 ML BAG IVPB SCH ×3 (05:04→22:05)
[2017-12-21 07:07] LABS: BASO # 0.01 K/mm3 (0.0-2.0); BASO % 0.2 % (0.0-3.0); EOS # 0.2 (0.0-0.7); EOS % 3.8 % (1.5-5.0); GRAN # 2.62 (1.4-6.5); GRAN % 55.2 % (50.0-68.0); LYMPH # 1.6 (1.2-3.4); LYMPH % 34.3 % (22.0-35.0); MEAN CELL VOLUME 83.9 fl (80.0-105.0); MEAN CORPUSCULAR HEMOGLOBIN 27.7 pg (25.0-35.0); MEAN PLATELET VOLUME 8.8 fl (7.0-11.0); MONO # 0.3 (0.1-0.6); MONO % 6.5 % (1.0-6.0); RBC 3.61 10^6/uL (3.5-6.1); RED CELL DISTRIBUTION WIDTH 15.2 % (11.5-14.5)
[2017-12-21 07:13] LABS: INR 1.25; PARTIAL THROMBOPLASTIN TIME 56.9 Seconds (25.1-36.5); PROTHROMBIN TIME 14.4 SECONDS (9.4-12.5); WHITE BLOOD COUNT 4.8 10^3/ul (4.5-11.0)
[2017-12-21 07:44] LABS: ALB/GLOB RATIO 1.2 (1.1-1.8); ALBUMIN 3.2 g/dL (3.0-4.8); ALT/SGPT 70 U/L (7-56); AST/SGOT 46 U/L (14-36); BLOOD UREA NITROGEN 14 mg/dL (7-21); CALCIUM 8.6 mg/dL (8.4-10.5); GFR NON-AFRICAN AMERICAN > 60
--- NOTE | 2017-12-21 08:54 | PN ---
DATE: 12/21/2017 SUBJECTIVE: I evaluated Mrs. Flores this morning. She is a 47-year-old white female with past medical history of treated ovarian cancer and hypertension, here with complaints of severe abdominal pain and right upper quadrant discomfort, radiating to the back. Note that the patient was found to have a thick-walled gallbladder, pericholecystic fluid and numerous stones. At the bedside this morning, the patient indicates still residual abdominal pain with abdominal bloating. The patient is scheduled for a surgical procedure later today. PHYSICAL EXAMINATION: VITAL SIGNS: I reviewed this patient's vital signs. HEENT: Noncontributory. LUNGS: Clear to auscultation. HEART: Regular rhythm. ABDOMEN: Mildly distended. Extremely tender still in the epigastric area as well as the right upper quadrant. Some tenderness extending down to the area of the right paraumbilical. LABORATORY DATA: Reviewed yesterday. Note that the patient had biliary scan yesterday. Note that evaluation of images indicates no gallbladder visualization noted. Note that the biliary scan is not interpreted as of yet. ASSESSMENT AND PLAN: Overall assessment, this is a 47-year-old white female with new-onset cholecystitis, gallstones. Scheduled for a cholecystectomy later on today. Ramses Ruiz DO, PhD [place]
[2017-12-21] MEDS: Morphine 2 mg/ml ISec IVP PRN ×2 (08:58→13:09)
[2017-12-21] MEDS: cefTRIAXone 1 gm 1 GM/100 ML BAG IVPB SCH (12:12)
[2017-12-21] MEDS: Lactated Ringer's 1,000 ML IV SCH ×2 (12:12→21:15)
--- NOTE | 2017-12-21 14:45 | NM ---
Date of service: 12/20/2017 PROCEDURE: Nuclear Medicine Hepatobiliary Scan HISTORY: cholelithiasis,chills,temperature 100.4* COMPARISON: None available. TECHNIQUE: 6.2 mCi of technetium 99m Mebrofenin was administered intravenously. Planar images of the abdomen were obtained at 5 min intervals to 60 mins. Delayed images were also obtained. FINDINGS: LIVER: Timely and homogenous uptake. COMMON BILE DUCT: identified at 15 mins. GALLBLADDER: identified at 45 mins. SMALL BOWEL: Identified at 30 mins. IMPRESSION: Normal Hepatobiliary Scan. The cystic duct is patent.
[2017-12-21] MEDS ORDERED: Iohexol 240 (50 ml) ONE (15:23)
[2017-12-21] MEDS ORDERED: Rocuronium 10 mg/ml (5 ml) ONE ×2 (15:25→16:30)
[2017-12-21] MEDS ORDERED: Succinylcholine 200 mg/10 ml Inj IV ONE (15:25)
[2017-12-21] MEDS ORDERED: Propofol 10 mg/ml Inj (20 ML) ONE (15:25)
[2017-12-21] MEDS ORDERED: Desflurane Inhalation Anesthetic Liq (240 ml) ONE ×2 (15:30→16:34)
[2017-12-21] MEDS ORDERED: Phenylephrine 10 mg/ml Inj ONE ×2 (15:34→17:07)
[2017-12-21] MEDS ORDERED: Sevoflurane - Inhalation Anesthetic Liq (250 ml) ONE (15:34)
[2017-12-21] MEDS ORDERED: ePHEDrine 50 mg/ml Inj ONE (16:05)
[2017-12-21] MEDS: Bupivacaine 0.25% 50 ML INJ IJ ONE ×2 (16:38→18:29)
[2017-12-21] MEDS: Lidocaine 1% w Epi 1:100,000 Inj ONE ×2 (16:38→18:29)
[2017-12-21] MEDS ORDERED: Neostigmine Methylsulfate 3mg/3ml Syringe IV ONE (17:06)
[2017-12-21] MEDS ORDERED: Sodium Chloride 0.9% 1,000 ML IV SCH (17:15)
[2017-12-21] MEDS ORDERED: Esmolol 100 mg/10ml Inj IV ONE (18:38)
--- NOTE | 2017-12-21 19:08 | PCM.SURG1 ---
Surgeon's Initial Post Op Note - Surgeon's Notes Surgeon: Dr. Gonzalez Cook Room Supervisor: Dr. Mccarthy PGY3 Type of Anesthesia: General Endo Pre-Operative Diagnosis: Acute Cholecystitis Operative Findings: See operative dictation Post-Operative Diagnosis: Acute Cholecystitis Operation Performed: Laparoscopic Cholecystectomy and lysis of adhesions Specimen/Specimens Removed: Gallbladder Estimated Blood Loss: EBL {In ML}: 380 Blood Products Given: N/A Drains Used: Yossi Post-Op Condition: Good Date of Surgery/Procedure: 12/21/17 Time of Surgery/Procedure: 19:07
[2017-12-21] MEDS ORDERED: Oxycodone/Acetaminophen 5/325 mg Tab PO PRN (19:09)
[2017-12-21] MEDS: HYDROmorphone 1 mg/ml ISec IVP PRN ×2 (19:10→19:35)
[2017-12-21] MEDS ORDERED: HYDROmorphone 1 mg/ml ISec ONE ×2 (19:11→19:40)
--- NOTE | 2017-12-21 19:47 | CP.PCM.PN ---
Subjective - Date & Time of Evaluation Date of Evaluation: 12/21/17 Time of Evaluation: 19:45 - Subjective Subjective: Pt seen and examined this morning at bedside. Pt reports abdominal pain, planning to go to OR some time in the afternoon. Objective - Vital Signs/Intake and Output Vital Signs (last 24 hours): Temp Pulse Resp BP Pulse Ox 98.8 F 102 H 16 102/68 96 12/21/17 19:20 12/21/17 19:20 12/21/17 19:20 12/21/17 19:20 12/21/17 19:20 Intake and Output: 12/21/17 12/22/17 18:59 06:59 Intake Total 0 Balance 0 - Medications Medications: Current Medications Amitriptyline HCl (Elavil) 50 mg PO [facility] Last Admin: 12/20/17 21:33 Dose: 50 mg Clonazepam (Klonopin) 0.5 mg PO BID [facility]; Protocol Last Admin: 12/21/17 10:04 Dose: 0.5 mg Cyclobenzaprine HCl (Flexeril) 10 mg PO [facility] Last Admin: 12/20/17 21:33 Dose: 10 mg Docusate Sodium (Colace) 100 mg PO BID [facility] Last Admin: 12/21/17 10:04 Dose: 100 mg Docusate Sodium (Colace) 100 mg PO BID [facility] Duloxetine HCl (Cymbalta) 120 mg PO DAILY [facility] Last Admin: 12/21/17 10:05 Dose: 120 mg Gabapentin (Neurontin) 600 mg PO TID [facility]; Protocol Last Admin: 12/21/17 13:51 Dose: 600 mg Hydromorphone HCl (Dilaudid) 1 mg IVP Q15M PRN PRN Reason: Pain, moderate (4-7) Stop: 12/21/17 23:59 Hydromorphone HCl (Dilaudid) 0.5 mg IVP Q4H PRN PRN Reason: Pain, severe (8-10) Metronidazole (Flagyl) 500 mg in 100 mls @ 100 mls/hr IVPB Q8 [facility]; Protocol Last Admin: 12/21/17 13:09 Dose: 100 mls/hr Lactated Ringer's (Lactated Ringer's) 1,000 mls @ 130 mls/hr IV .Q7H42M [facility] Stop: 12/22/17 19:22 Last Admin: 12/21/17 12:12 Dose: 130 mls/hr Ceftriaxone Sodium (Rocephin 1 Gram Ivpb) 1 gm in 100 mls @ 100 mls/hr IVPB DAILY [facility]; Protocol Last Admin: 12/21/17 12:12 Dose: 100 mls/hr Lidocaine (Lidoderm) 1 ea TD DAILY [facility] Lisinopril (Zestril) 10 mg PO DAILY [facility] Last Admin: 12/21/17 10:05 Dose: 10 mg Morphine Sulfate (Morphine) 2 mg IVP Q4H PRN PRN Reason: Pain, moderate (4-7) Last Admin: 12/21/17 13:09 Dose: 2 mg Ondansetron HCl (Zofran Inj) 4 mg IVP Q4H PRN PRN Reason: Nausea/Vomiting Last Admin: 12/20/17 01:57 Dose: 4 mg Ondansetron HCl (Zofran Inj) 4 mg IVP ONCE PRN PRN Reason: Nausea/Vomiting Oxycodone/Acetaminophen (Percocet 5/325 Mg Tab) 1 tab PO Q4H PRN PRN Reason: Pain, moderate (4-7) Stop: 12/24/17 19:10 Pantoprazole Sodium (Protonix Inj) 40 mg IVP DAILY [facility] Last Admin: 12/21/17 10:04 Dose: 40 mg - Labs Labs: 12/21/17 06:40 12/21/17 06:40 PT 14.4 SECONDS (9.4-12.5) H 12/21/17 06:40 INR 1.25 12/21/17 06:40 APTT 56.9 Seconds (25.1-36.5) H 12/21/17 06:40 - Head Exam Head Exam: ATRAUMATIC, NORMOCEPHALIC - Eye Exam Eye Exam: EOMI - ENT Exam ENT Exam: Mucous Membranes Moist - Respiratory Exam Respiratory Exam: Clear to Ausculation Bilateral, NORMAL BREATHING PATTERN - Cardiovascular Exam Cardiovascular Exam: RRR, +S1, +S2 - GI/Abdominal Exam GI & Abdominal Exam: Soft, Normal Bowel Sounds Additional comments: tender to palpation, R more than left - Neurological Exam Neurological Exam: CN II-XII Intact, Oriented x3 Assessment and Plan - Assessment and Plan (Free Text) Assessment: Pt is a 47 yo female with a PMH of PMHx ovarian cancer in 1999 s/p chemotherapy, previous post-op complications of excessive bleeding, HTN & fibromyalgia presents to [facility] [place] with complaints of severe, intractable, constant, 10/10 abdominal pain, most notably in the RUQ. Pt was found to have multiple gallstones present with a calculus suspected neck gallbladder. No significant gallbladder wall thickening or pericholecystic fluid. In the ED, she was started on rocephin/flagyl, morphine, zofran and a bolus of NS. Oral potassium was given for repletion. Surgery team was consulted, who recommended CT abdomen for further evaluation. Pt on NPO diet and admitted to med/surg. Plan: Abdominal Pain, secondary to cholelithiasis - given rocephin/flagyl for empiric coverage - morphine deric prn - zofran IVP prn - NaCl @100mls/hr - NPO diet except meds - CT abdomen: acute cholecystitis - HIDA scan: normal, cystic duct patent - surgery today, no complications - pt is a low risk candidate for a low risk surgery - Consult GI Hypokalemia - replete PRN - IV KCl 10meq x 2 Constipation - colace bid HTN continue home lisinopril/hctz Pt seen, examined, assessment and plan discussed with Dr Samantha Brown PGY1
[2017-12-22] MEDS: HYDROmorphone 1 mg/ml ISec IVP PRN ×3 (02:59→11:01)
[2017-12-22] MEDS: Lactated Ringer's 1,000 ML IV SCH (05:55)
[2017-12-22] MEDS: metroNIDAZOLE IV 500 mg/100 ml 500 MG/100 ML BAG IVPB SCH ×3 (05:57→22:01)
[2017-12-22 06:36] LABS: BASO # 0.01 K/mm3 (0.0-2.0); BASO % 0.2 % (0.0-3.0); EOS % 0.8 % (1.5-5.0); GRAN # 3.41 (1.4-6.5); GRAN % 66.1 % (50.0-68.0); HEMOGLOBIN 8.6 g/dL (12.0-16.0); LYMPH # 1.4 (1.2-3.4); LYMPH % 26.9 % (22.0-35.0); MEAN CELL VOLUME 82.8 fl (80.0-105.0); MEAN CORPUSCULAR HEMOGLOBIN 27.8 pg (25.0-35.0); MEAN CORPUSCULAR HGB CONC 33.6 g/dl (31.0-37.0); MEAN PLATELET VOLUME 8.8 fl (7.0-11.0); MONO # 0.3 (0.1-0.6); RBC 3.09 10^6/uL (3.5-6.1); RED CELL DISTRIBUTION WIDTH 14.8 % (11.5-14.5); WHITE BLOOD COUNT 5.2 10^3/ul (4.5-11.0)
[2017-12-22 07:15] LABS: ALB/GLOB RATIO 1.1 (1.1-1.8); ALBUMIN 2.7 g/dL (3.0-4.8); ALT/SGPT 91 U/L (7-56); AST/SGOT 98 U/L (14-36); BLOOD UREA NITROGEN 10 mg/dL (7-21); CALCIUM 8.4 mg/dL (8.4-10.5); GFR NON-AFRICAN AMERICAN > 60
--- NOTE | 2017-12-22 08:09 | PN ---
DATE: 12/22/2017 SUBJECTIVE: I examined Ms. Flores this morning. She is a 47-year-old white female, admitted with complaints of nausea, vomiting, abdominal pain and symptoms post radiology significant for cholecystitis. At the bedside this morning, after a surgical procedure, the patient is still experiencing some right upper quadrant pain and abdominal distention. PHYSICAL EXAMINATION: VITAL SIGNS: I reviewed this patient's vital signs. HEENT: Significant for dry mouth. LUNGS: Decreased breath sounds, basilar. HEART: Mildly tachycardic. ABDOMEN: Mildly distended. Hypoactive bowel sounds. Tender in the right upper quadrant. LABORATORY DATA: Pending for this morning. OVERALL ASSESSMENT: A 47-year-old female with signs and symptoms of cholecystitis, multiple gallstones, status post laparoscopic cholecystectomy for cholecystitis. The patient will be followed up by Surgery later on this morning to determine discharge disposition. Treatment will be dictated as per surgical followup. Not much more to offer for this particular case. Ramses Ruiz DO, PhD ADILSON
[2017-12-22] MEDS: Lidocaine 5% Patch TD SCH (10:11)
[2017-12-22] MEDS: cefTRIAXone 1 gm 1 GM/100 ML BAG IVPB SCH (10:12)
--- NOTE | 2017-12-22 11:46 | CARD ---
APPROVED REPORT Date of service: 12/22/2017 EKG Measurement Heart [id number] TX [id number] [id number] <Conclusion> Normal sinus rhythm Incomplete right bundle branch block Borderline ECG
--- NOTE | 2017-12-22 12:21 | CP.PCM.PN ---
<Ric Mccarthy - Last Filed: 12/22/17 12:17> Subjective - Date & Time of Evaluation Date of Evaluation: 12/22/17 Time of Evaluation: 12:17 - Subjective Subjective: General Surgery Progress Note for Dr. Gonzalez This 47F was seen and examined this AM at bedside not acut events reported overnight. She reports that her abdomen is sore however she is in less pain than she was prior to surgery. She denies any chest pain or SOB. She has not passed flatus or ambulated. Yossi output 90cc sanguinous output. Inscisions with glue in p;jyoti well approximated non draining non erythematous. Objective - Vital Signs/Intake and Output Vital Signs (last 24 hours): Temp Pulse Resp BP Pulse Ox 97.3 F L 98 H 20 113/75 94 L 12/22/17 09:06 12/22/17 10:12 12/22/17 09:06 12/22/17 10:12 12/22/17 09:06 Intake and Output: 12/22/17 12/22/17 06:59 18:59 Intake Total 1160 Output Total 390 Balance 770 - Medications Medications: Current Medications Amitriptyline HCl (Elavil) 50 mg PO HS [facility] Last Admin: 12/21/17 22:05 Dose: Not Given Clonazepam (Klonopin) 0.5 mg PO BID [facility]; Protocol Last Admin: 12/22/17 10:11 Dose: 0.5 mg Cyclobenzaprine HCl (Flexeril) 10 mg PO HS [facility] Last Admin: 12/21/17 22:05 Dose: Not Given Docusate Sodium (Colace) 100 mg PO BID [facility] Last Admin: 12/21/17 10:04 Dose: 100 mg Docusate Sodium (Colace) 100 mg PO BID [facility] Last Admin: 12/22/17 10:12 Dose: 100 mg Duloxetine HCl (Cymbalta) 120 mg PO DAILY [facility] Last Admin: 12/22/17 10:12 Dose: 120 mg Gabapentin (Neurontin) 600 mg PO TID [facility]; Protocol Last Admin: 12/22/17 10:11 Dose: 600 mg Hydromorphone HCl (Dilaudid) 0.5 mg IVP Q4H PRN PRN Reason: Pain, severe (8-10) Last Admin: 12/22/17 11:01 Dose: 0.5 mg Metronidazole (Flagyl) 500 mg in 100 mls @ 100 mls/hr IVPB Q8 [facility]; Protocol Last Admin: 12/22/17 05:57 Dose: 100 mls/hr Lactated Ringer's (Lactated Ringer's) 1,000 mls @ 130 mls/hr IV .Q7H42M [facility] Stop: 12/22/17 19:22 Last Admin: 12/22/17 05:55 Dose: 130 mls/hr Ceftriaxone Sodium (Rocephin 1 Gram Ivpb) 1 gm in 100 mls @ 100 mls/hr IVPB DAILY [facility]; Protocol Last Admin: 12/22/17 10:12 Dose: 100 mls/hr Lidocaine (Lidoderm) 1 ea TD DAILY [facility] Last Admin: 12/22/17 10:11 Dose: 1 ea Lisinopril (Zestril) 10 mg PO DAILY [facility] Last Admin: 12/22/17 10:12 Dose: 10 mg Morphine Sulfate (Morphine) 2 mg IVP Q4H PRN PRN Reason: Pain, moderate (4-7) Last Admin: 12/21/17 13:09 Dose: 2 mg Ondansetron HCl (Zofran Inj) 4 mg IVP Q4H PRN PRN Reason: Nausea/Vomiting Last Admin: 12/22/17 10:18 Dose: 4 mg Ondansetron HCl (Zofran Inj) 4 mg IVP ONCE PRN PRN Reason: Nausea/Vomiting Oxycodone/Acetaminophen (Percocet 5/325 Mg Tab) 1 tab PO Q4H PRN PRN Reason: Pain, moderate (4-7) Stop: 12/24/17 19:10 Pantoprazole Sodium (Protonix Inj) 40 mg IVP DAILY [facility] Last Admin: 12/22/17 10:12 Dose: 40 mg - Labs Labs: 12/22/17 05:30 12/22/17 05:30 PT 14.4 SECONDS (9.4-12.5) H 12/21/17 06:40 INR 1.25 12/21/17 06:40 APTT 56.9 Seconds (25.1-36.5) H 12/21/17 06:40 - Constitutional Appears: Non-toxic, No Acute Distress - Head Exam Head Exam: ATRAUMATIC, NORMOCEPHALIC - Eye Exam Eye Exam: EOMI - Respiratory Exam Respiratory Exam: NORMAL BREATHING PATTERN - Cardiovascular Exam Cardiovascular Exam: +S1, +S2 - GI/Abdominal Exam GI & Abdominal Exam: Soft, Tenderness. absent: Distended - Exam Additional comments: Moreno in place - Neurological Exam Neurological Exam: Alert, Awake - Psychiatric Exam Psychiatric exam: Normal Affect, Normal Mood - Skin Skin Exam: Dry, Intact Assessment and Plan - Assessment and Plan (Free Text) Assessment: 47F POD# s/p Lap mario alberto No chemical DVT ppx OOB Pain control no toradol D/C moreno and void check Incentive Spirometer Advance diet low fat Further recs per Dr. Carlos Mccarthy PGY3 <Elia Gonzalez - Last Filed: 12/23/17 16:31> Objective - Vital Signs/Intake and Output Vital Signs (last 24 hours): Temp Pulse Resp BP Pulse Ox 98.2 F 93 H 19 97/62 L 96 12/23/17 06:00 12/23/17 06:00 12/23/17 06:00 12/23/17 06:00 12/23/17 06:00 Intake and Output: 12/23/17 12/23/17 06:59 18:59 Intake Total 1590 Output Total 590 Balance 1000 - Medications Medications: Current Medications Amitriptyline HCl (Elavil) 50 mg PO HS [facility] Last Admin: 12/22/17 22:24 Dose: 50 mg Clonazepam (Klonopin) 0.5 mg PO BID [facility]; Protocol Last Admin: 12/23/17 09:44 Dose: 0.5 mg Cyclobenzaprine HCl (Flexeril) 10 mg PO HS [facility] Last Admin: 12/22/17 22:22 Dose: 10 mg Duloxetine HCl (Cymbalta) 120 mg PO DAILY [facility] Last Admin: 12/23/17 09:44 Dose: 120 mg Gabapentin (Neurontin) 800 mg PO TID [facility]; Protocol Last Admin: 12/23/17 13:24 Dose: 800 mg Hydromorphone HCl (Dilaudid) 0.5 mg IVP Q4H PRN PRN Reason: Pain, severe (8-10) Metronidazole (Flagyl) 500 mg in 100 mls @ 100 mls/hr IVPB Q8 [facility]; Protocol Last Admin: 12/23/17 13:24 Dose: 100 mls/hr Ceftriaxone Sodium (Rocephin 1 Gram Ivpb) 1 gm in 100 mls @ 100 mls/hr IVPB DAILY [facility]; Protocol Last Admin: 12/23/17 09:43 Dose: 100 mls/hr Potassium Chloride/Dextrose/Sod Cl (Potassium Chl 20 Meq In D5-1/2ns) 1,000 mls @ 100 mls/hr IV .Q10H [facility] Last Admin: 12/22/17 20:51 Dose: 100 mls/hr Lidocaine (Lidoderm) 1 ea TD DAILY [facility] Last Admin: 12/23/17 09:44 Dose: 1 ea Lisinopril (Zestril) 10 mg PO DAILY [facility] Last Admin: 12/23/17 09:45 Dose: 10 mg Ondansetron HCl (Zofran Inj) 4 mg IVP Q4H PRN PRN Reason: Nausea/Vomiting Last Admin: 12/22/17 10:18 Dose: 4 mg Oxycodone HCl (Oxycodone Immediate Release Tab) 10 mg PO Q4 PRN PRN Reason: Pain, moderate (4-7) Pantoprazole Sodium (Protonix Inj) 40 mg IVP DAILY [facility] Last Admin: 12/23/17 09:44 Dose: 40 mg Senna/Docusate Sodium (Senokot S 50 Mg-8.6 Mg) 1 tab PO BID [facility] Last Admin: 12/23/17 09:45 Dose: 1 tab - Labs Labs: 12/23/17 06:40 12/23/17 06:40 PT 14.4 SECONDS (9.4-12.5) H 12/21/17 06:40 INR 1.25 12/21/17 06:40 APTT 56.9 Seconds (25.1-36.5) H 12/21/17 06:40 Assessment and Plan - Assessment and Plan (Free Text) Plan: Late entry. I personally saw and examined the patient at bedside with resident staff. Agree with above. No acute events. Some nausea over night. controlled with meds. Pre-op ruq pain resolved. Has incisional pain, not completed controlled with current meds. Moreno out. Pain control - increase neurontin to 800 TID, percocet 2tabs q6 prn, lidoderm patch to abd. Advance diet as tolerated. Early ambulation. ZAID drain to bulb suction. Hgb 8.6, consistent with intra-operative blood loss. No hemodynamic instability. drain output serosanguinous. Hold lovenox/heparin for 24 hours. Recheck CBC in am.
[2017-12-22] MEDS ORDERED: Magnesium Sulfate 2 gm/50 ml 2 GM/50 ML BAG IVPB ONE (13:03)
--- NOTE | 2017-12-22 13:16 | PCM.OP ---
Operative Report - Operative Report Date of Surgery/Procedure: 12/21/17 Time of Surgery/Procedure: 16:15 Surgeon: Elia Gonzalez MD Sexual Abuse Counsellor: Ric Mccarthy DO (PGY3 resident) Anesthesia/Sedation: General endotracheal; 1% lidocaine with epineprhine + 0.25% Marcaine mix local anesthesia Pre-Operative Diagnosis: Acute calculous cholecystitis. Morbid Obesity. BMI 35. s/p open total abdominal hysterectomy and bilateral salpingoopherectomy many years ago. s/p open ventral incisional hernia repair with mesh many years ago. Fibromyalgia with chronic left sided abdominal pain Post-Operative Diagnosis: Acute calculous cholecystitis. Hepatomegaly and Fatty liver. Significant intraabdominal and omental adhesions s/p previous open abdominal surgeries. Morbid Obesity. BMI 35. s/p open total abdominal hysterectomy and bilateral salpingoopherectomy many years ago. s/p open ventral incisional hernia repair with mesh many years ago. Fibromyalgia with chronic left sided abdominal pain Indication for Surgery: This is a 47-year-old morbidly obese female with past history of ovarian cancer s/p EMELY/BSO, open ventral incisional hernia repair with mesh, chronic pain and fibromyalgia presented to ED with acute onset RUQ pain due to symptomatic cholelithiasis and acute cholecystitis, with CT evidence of large dilated, fluid filled gallbladder and wall thickening and inflammation; RUQ US showed a multiple gallstones, including non-mobile obtructing stone in the gallbladder neck. Details of HPI in clinical chart. Taken to the operating room for laparoscopic cholecystectomy. Patient understands the risks and benefits of the procedure as documented in the clinic chart but specifically risk of cystic duct leak and common bile duct injury, need for open surgery and has consented to the procedure. Operative Findings: Significant omental adhesions to anterior abdominal wall and site of prior mesh repair. Large fatty liver extending well below costal margin. Mutiple filmy adhesions from anterior surface of right lobe to right upper abdominal wall, possibly from prior infection. Significant inflammation in right upper quadrant with omental caking and adhesions gallbladder to omentum;. Dilated, Fluid filled gallbladder with multple large stones. Clips in place on cystic duct and cystic artery at end of case without evidence of bleeding or bile leak Procedure/Operation Description: PROCEDURES PERFORMED: 1) Laparoscopic Cholecystectomy. 2) extensive laparoscopic lysis of adhesions (requiring an additional 45 minutes of operative time). DESCRIPTION OF PROCEDURE: The patient was given a preoperative dose of Zosyn 20 minutes before the incision. SCD boots were placed for DVT prophylaxis. The patient had an orogastric tube placed in order to empty the stomach after the induction of general anesthesia. Upper and lower body warmer placed to maintain normothermia. Secure straps placed above and bleow the knees and footboard placed. Arms placed on arm boards out at 80 degress. Small caliber moreno catheter inserted to decompress bladder. All bony prominences were padded. A timeout was performed prior to incision. The abdomen was prepped and draped in sterile fashion. All skin incisions were made using an 11 blade scalpel after being pre-anesthetized with local anesthesia. Because of her multiple midline surgeries, initial abdominal entry was attempted using an 5mm optically viewing trocar with A 5mm 0-degree laparoscope placed in subcostal right upper quadrant. All layers of the abdominal wall were seen and peritoneal entry directly visualized. However, some bleeding was encoutered and obstructed view of definitive placement. Trocar was left in place and abdominal entry was sucessfully obtained with same approach using optically viewing troacr in [facility] point in the left upper quadrant. Abdomen was insufflated to 15 mmHg pressure with CO2. A 30-degree viewing scope was then inserted and the abdomen was generally inspected and we noted the bleeding comeing from the right sided port insertion with 5mm laceration to the edge of right liver lobe which was found to be adherent to the abdominal wall. There were signficant omental adhesions to her midline from her prior surgery and mesh hernia repair. A 11mm trocar was inserted in the left lower quadrant free from adhesion under direct vision. A raytec sponge was inserted and used to tamponade the liver bleeding, while we placed additonal working ports. A 10mm 30 degree laparoscope was now used and, omental adhesion to the anterior abdominal wall were taking down using combination of blunt and biploar energy for meticulous dissection. This was extensive and added approximately 45 minutes to the operation. We then placed two additional 5mm working ports in the right upper abdomen under direct vision and in the sup-umbilical midline, a an 11-mm radially dilating port was placed in the similar fashion, traverse her previously placed mesh which was unavoidable to obtain adequate visualization and triangulation of her right upper quadrant. 2 small liver lacerations were cauterized with monopolar energy and topical hemostatic surgicel. Hemostasis was acheived and we then began the cholecystectomy portion of the case. . There was significant inflammation in the right upper abdomen and a large dilated gallbladder fundus was identified beneath the liver edge. A laparoscopic aspiration needle was inserted into the fundus and used to aspirate 30cc of dark bilious fluid for decompression and allow grasping and retraction. The fundus of the gallbladder was then retracted to the right upper quadrant and the neck of the gallbladder was visualized. There were omental adhesions to the gallbladder that were taken down with a cominbation of sharp dissection and hook cautery. The peritoneal attachments from the lateral portion of the gallbladder/cystic duct junction were gently dissected and divided to open up the [place]. The [place] was then dissected up onto the liver bed posterior to the gallbladder in order to ensure that this was the cystic duct and not tenting of the common bile duct. The peritoneal attachments on the medial portion of the gallbladder going up to the side of the liver were taken and distal third of galbbladder dissected off the cystic plate. The critical view was obtained. The cystic artery and duct were sequentially then doubly clipped and ligated using 10mm metallic clips and the clips were inspected and intact. . Once this was completed, the gallbladder was dissected free from the liver bed using electrocautery. Due to the degree of inflammation and intra-hepatic location of her gallbladder, all tissue plains were very friable and oozing small amount of blood off liver bed. Liver bed bleeding was controlled with monopolar energy and topical hemostatic surgicel. The and placed this in an endo catch bag. This was withdrawn through the Left upper quadrant port site. The abdomen was reinspected. The clips were in good position on the cystic artery and duct stumps and the abdomen was generally irrigated and drained. Hemostasis was confirmed. Raytec sponges removed. A 19french round ba drain was placed adjacent to liver bed and brought out through the lateral right upper quadrant port site, secured to skin with 2-0 nylon suture. The supraumbilical 12mm port site was closed using 0-vicryl interrupted suture by transfascial suture passer under direct, approximating the mesh to midline. The ports were then removed from the abdomen and the abdomen was desufflated with air. The left upper quadrant speciment extraction site was closed using interrupted [id number] 0- Vicryl suture x3, skin incisions closed with 4-0 Vicryl sutures, and finally dermabond applied to skin. The patient tolerated the procedure well and was extubated and stable in recovery after the procedure. . I was present throughout the entirety of the procedure. Sponge, needle and instrument counts were correct. Estimated Blood Loss: 300mL Drains: 19Fr round ba drain in right upper quadrant x1 Complications: above Specimen: gallbladder Discharge & Condition: above
--- NOTE | 2017-12-22 13:57 | CP.PCM.PN ---
Subjective - Date & Time of Evaluation Date of Evaluation: 12/22/17 Time of Evaluation: 13:54 - Subjective Subjective: Pt seen and examined at bedside, pt reports abdominal pain post surgery. Pt has not moved her bowels or passed gas yet Objective - Vital Signs/Intake and Output Vital Signs (last 24 hours): Temp Pulse Resp BP Pulse Ox 97.3 F L 98 H 20 113/75 94 L 12/22/17 09:06 12/22/17 10:12 12/22/17 09:06 12/22/17 10:12 12/22/17 09:06 Intake and Output: 12/22/17 12/22/17 06:59 18:59 Intake Total 1160 Output Total 390 Balance 770 - Medications Medications: Current Medications Amitriptyline HCl (Elavil) 50 mg PO HS [facility] Last Admin: 12/21/17 22:05 Dose: Not Given Clonazepam (Klonopin) 0.5 mg PO BID [facility]; Protocol Last Admin: 12/22/17 10:11 Dose: 0.5 mg Cyclobenzaprine HCl (Flexeril) 10 mg PO HS [facility] Last Admin: 12/21/17 22:05 Dose: Not Given Duloxetine HCl (Cymbalta) 120 mg PO DAILY [facility] Last Admin: 12/22/17 10:12 Dose: 120 mg Gabapentin (Neurontin) 600 mg PO TID [facility]; Protocol Last Admin: 12/22/17 10:11 Dose: 600 mg Metronidazole (Flagyl) 500 mg in 100 mls @ 100 mls/hr IVPB Q8 [facility]; Protocol Last Admin: 12/22/17 05:57 Dose: 100 mls/hr Lactated Ringer's (Lactated Ringer's) 1,000 mls @ 130 mls/hr IV .Q7H42M [facility] Stop: 12/22/17 19:22 Last Admin: 12/22/17 05:55 Dose: 130 mls/hr Ceftriaxone Sodium (Rocephin 1 Gram Ivpb) 1 gm in 100 mls @ 100 mls/hr IVPB DAILY [facility]; Protocol Last Admin: 12/22/17 10:12 Dose: 100 mls/hr Magnesium Sulfate (Magnesium Sulfate 2 Gm/50 Ml Water) 2 gm in 50 mls @ 50 mls/hr IVPB ONCE ONE Stop: 12/22/17 14:02 Lidocaine (Lidoderm) 1 ea TD DAILY [facility] Last Admin: 12/22/17 10:11 Dose: 1 ea Lisinopril (Zestril) 10 mg PO DAILY [facility] Last Admin: 12/22/17 10:12 Dose: 10 mg Ondansetron HCl (Zofran Inj) 4 mg IVP Q4H PRN PRN Reason: Nausea/Vomiting Last Admin: 12/22/17 10:18 Dose: 4 mg Oxycodone/Acetaminophen (Percocet 5/325 Mg Tab) 2 tab PO Q4H PRN PRN Reason: Pain, moderate (4-7) Stop: 12/25/17 13:06 Pantoprazole Sodium (Protonix Inj) 40 mg IVP DAILY [facility] Last Admin: 12/22/17 10:12 Dose: 40 mg Senna/Docusate Sodium (Senokot S 50 Mg-8.6 Mg) 1 tab PO BID [facility] - Labs Labs: 12/22/17 05:30 12/22/17 05:30 PT 14.4 SECONDS (9.4-12.5) H 12/21/17 06:40 INR 1.25 12/21/17 06:40 APTT 56.9 Seconds (25.1-36.5) H 12/21/17 06:40 - Constitutional Appears: No Acute Distress - Head Exam Head Exam: ATRAUMATIC, NORMOCEPHALIC - ENT Exam ENT Exam: Mucous Membranes Moist - Respiratory Exam Respiratory Exam: Clear to Ausculation Bilateral, NORMAL BREATHING PATTERN - Cardiovascular Exam Cardiovascular Exam: RRR - GI/Abdominal Exam GI & Abdominal Exam: Soft, Tenderness, Normal Bowel Sounds Additional comments: pt abdomen tender to palpation, surgical site healing well, sero sanginuos drainage - Neurological Exam Neurological Exam: Awake Assessment and Plan - Assessment and Plan (Free Text) Assessment: Pt is a 47 yo female with a PMH of PMHx ovarian cancer in 1999 s/p chemotherapy, previous post-op complications of excessive bleeding, HTN & fibromyalgia presents to [facility] with complaints of severe, intractable, constant, 10/10 abdominal pain, most notably in the RUQ. Pt was found to have multiple gal lstones present with a calculus suspected neck gallbladder. No significant gallbladder wall thickening or pericholecystic fluid. In the ED, she was started on rocephin/flagyl, morphine, zofran and a bolus of NS. Oral potassium was given for repletion. Surgery team was consulted, who recommended CT abdomen for further evaluation. Pt on NPO diet and admitted to med/surg. Plan: Status post Lap Lennie - continue rocephin - continue flagyl - percocet - zofran IVP prn - altered hepatic diet - CT abdomen: acute cholecystitis - HIDA scan: normal, cystic duct patent - pt is a low risk candidate for a low risk surgery - Consult GI - surgery to remove drain when output is less than 30cc per shift - continue to monitor H/H Fibromyalgia - amitriptyline - cyclobenzaprine - gabapentin Hypokalemia - continue to monitor Constipation - ducosate bid HTN - continue home lisinopril/hctz Pt seen, examined, assessment and plan discussed with Dr Samantha Brown PGY1 Internal Medicine Resident
[2017-12-22] MEDS: Oxycodone/Acetaminophen 5/325 mg Tab PO PRN (15:03)
[2017-12-22] MEDS ORDERED: HYDROmorphone 0.5 mg/0.5 ml ISec IVP PRN (16:14)
[2017-12-22] MEDS ORDERED: HYDROmorphone 1 mg/ml ISec IVP PRN (16:18)
[2017-12-22] MEDS ORDERED: Lactated Ringer's 1,000 ML IV SCH (17:26)
[2017-12-22] MEDS: Docusate-Senna 50 mg-8.6 mg Tab PO SCH (17:33)
[2017-12-22] MEDS ORDERED: Potassium Ch 20mEq in D5-1/2NS 1,000 ML IV SCH (18:15)
[2017-12-23] MEDS ORDERED: guaiFENesin 100 mg/5 ml Syrup UD PO ONE (01:13)
[2017-12-23] MEDS: Oxycodone/Acetaminophen 5/325 mg Tab PO PRN (01:32)
[2017-12-23] MEDS: metroNIDAZOLE IV 500 mg/100 ml 500 MG/100 ML BAG IVPB SCH ×2 (05:54→13:24)
[2017-12-23 07:27] LABS: BASO # 0.01 K/mm3 (0.0-2.0); BASO % 0.2 % (0.0-3.0); EOS # 0.1 (0.0-0.7); GRAN # 2.73 (1.4-6.5); HEMOGLOBIN 8.6 g/dL (12.0-16.0); LYMPH # 1.5 (1.2-3.4); LYMPH % 31.1 % (22.0-35.0); MEAN CELL VOLUME 84.4 fl (80.0-105.0); MEAN CORPUSCULAR HEMOGLOBIN 28.5 pg (25.0-35.0); MEAN CORPUSCULAR HGB CONC 33.7 g/dl (31.0-37.0); MEAN PLATELET VOLUME 8.9 fl (7.0-11.0); MONO # 0.4 (0.1-0.6); MONO % 7.7 % (1.0-6.0); RBC 3.02 10^6/uL (3.5-6.1); RED CELL DISTRIBUTION WIDTH 15.2 % (11.5-14.5); WHITE BLOOD COUNT 4.7 10^3/ul (4.5-11.0)
[2017-12-23 07:46] LABS: ALBUMIN 2.8 g/dL (3.0-4.8); ALT/SGPT 70 U/L (7-56); AST/SGOT 57 U/L (14-36); BLOOD UREA NITROGEN 6 mg/dL (7-21); CALCIUM 8.2 mg/dL (8.4-10.5); GFR NON-AFRICAN AMERICAN > 60
[2017-12-23] MEDS: cefTRIAXone 1 gm 1 GM/100 ML BAG IVPB SCH (09:43)
[2017-12-23] MEDS: Lidocaine 5% Patch TD SCH (09:44)
[2017-12-23] MEDS: Docusate-Senna 50 mg-8.6 mg Tab PO SCH (09:45)
[2017-12-23] MEDS ORDERED: oxyCODONE 10 mg Immediate Release Tab PO PRN (11:39)
--- NOTE | 2017-12-23 12:44 | CP.PCM.PN ---
Addendum entered and electronically signed by Ric Mccarthy DO 12/23/17 17:19: Correction Percocet 5/325 Q6 PRN for pain 28 tabs Original Note: Subjective - Date & Time of Evaluation Date of Evaluation: 12/23/17 Time of Evaluation: 12:42 - Subjective Subjective: General Surgery Progress Note for Dr. Gonzalez This 47F was seen and examined this AM at bedside no acute events overnight. Pt reports that her pain is significantly improved. She complains of epigastric soreness we discussed the adhesiolysis. She is tolerating diet. She denies any fevers chilsl chest pain or SOB. She is ambulating and has had a BM this AM. 95cc serosanguinous output output over 24hours. Pt requesting discharge. Objective - Vital Signs/Intake and Output Vital Signs (last 24 hours): Temp Pulse Resp BP Pulse Ox 98.2 F 93 H 19 97/62 L 96 12/23/17 06:00 12/23/17 06:00 12/23/17 06:00 12/23/17 06:00 12/23/17 06:00 Intake and Output: 12/23/17 12/23/17 06:59 18:59 Intake Total 1590 Output Total 590 Balance 1000 - Medications Medications: Current Medications Amitriptyline HCl (Elavil) 50 mg PO HS [facility] Last Admin: 12/22/17 22:24 Dose: 50 mg Clonazepam (Klonopin) 0.5 mg PO BID [facility]; Protocol Last Admin: 12/23/17 09:44 Dose: 0.5 mg Cyclobenzaprine HCl (Flexeril) 10 mg PO HS [facility] Last Admin: 12/22/17 22:22 Dose: 10 mg Duloxetine HCl (Cymbalta) 120 mg PO DAILY [facility] Last Admin: 12/23/17 09:44 Dose: 120 mg Gabapentin (Neurontin) 800 mg PO TID [facility]; Protocol Last Admin: 12/23/17 09:45 Dose: 800 mg Hydromorphone HCl (Dilaudid) 0.5 mg IVP Q4H PRN PRN Reason: Pain, severe (8-10) Metronidazole (Flagyl) 500 mg in 100 mls @ 100 mls/hr IVPB Q8 [facility]; Protocol Last Admin: 12/23/17 05:54 Dose: 100 mls/hr Ceftriaxone Sodium (Rocephin 1 Gram Ivpb) 1 gm in 100 mls @ 100 mls/hr IVPB DAILY [facility]; Protocol Last Admin: 12/23/17 09:43 Dose: 100 mls/hr Potassium Chloride/Dextrose/Sod Cl (Potassium Chl 20 Meq In D5-1/2ns) 1,000 mls @ 100 mls/hr IV .Q10H [facility] Last Admin: 12/22/17 20:51 Dose: 100 mls/hr Lidocaine (Lidoderm) 1 ea TD DAILY [facility] Last Admin: 12/23/17 09:44 Dose: 1 ea Lisinopril (Zestril) 10 mg PO DAILY [facility] Last Admin: 12/23/17 09:45 Dose: 10 mg Ondansetron HCl (Zofran Inj) 4 mg IVP Q4H PRN PRN Reason: Nausea/Vomiting Last Admin: 12/22/17 10:18 Dose: 4 mg Oxycodone HCl (Oxycodone Immediate Release Tab) 10 mg PO Q4 PRN PRN Reason: Pain, moderate (4-7) Pantoprazole Sodium (Protonix Inj) 40 mg IVP DAILY [facility] Last Admin: 12/23/17 09:44 Dose: 40 mg Senna/Docusate Sodium (Senokot S 50 Mg-8.6 Mg) 1 tab PO BID [facility] Last Admin: 12/23/17 09:45 Dose: 1 tab - Labs Labs: 12/23/17 06:40 12/23/17 06:40 PT 14.4 SECONDS (9.4-12.5) H 12/21/17 06:40 INR 1.25 12/21/17 06:40 APTT 56.9 Seconds (25.1-36.5) H 12/21/17 06:40 - Constitutional Appears: Non-toxic, No Acute Distress - Head Exam Head Exam: ATRAUMATIC, NORMOCEPHALIC - Eye Exam Eye Exam: EOMI - ENT Exam ENT Exam: Mucous Membranes Moist - Respiratory Exam Respiratory Exam: NORMAL BREATHING PATTERN - Cardiovascular Exam Cardiovascular Exam: +S1, +S2 - GI/Abdominal Exam GI & Abdominal Exam: Soft. absent: Distended, Firm, Guarding, Rigid Additional comments: Appropriately tender, Yossi drain in place - Neurological Exam Neurological Exam: Alert, Awake - Psychiatric Exam Psychiatric exam: Normal Affect, Normal Mood - Skin Skin Exam: Dry, Intact Assessment and Plan - Assessment and Plan (Free Text) Assessment: 47F POD#2 s/p lap mario alberto and doing well Will remove yossi drain If patient tolerates lunch clear to discharge 800 gabapentin TID X 30 days Percocet 5/325 PRN for pain Q6 for pain X 2 days Ibeuprofen 600 Q6h scheduled X 2 days Percolace 50/8.6mg BID Followup in 3-4 weeks D/W Dr. Carlos Mccarthy PGY3
[2017-12-23 17:33] VITALS: BP 106/60; PULSE 78; RESP 18; TEMP 99.5; O2SAT 97
--- NOTE | 2017-12-23 17:36 | CP.PCM.DIS ---
<Az Brown - Last Filed: 12/23/17 17:39> Provider - Provider Date of Admission: 12/20/17 00:49 Attending physician: Gabriella Oshea MD Time Spent in preparation of Discharge (in minutes): 45 Diagnosis - Discharge Diagnosis (1) Biliary colic Status: Acute Priority: High (2) Intractable abdominal pain Status: Acute Priority: High (3) Fibromyalgia Status: Chronic Priority: Medium Hospital Course - Lab Results Lab Results: Micro Results 12/19/17 21:00 Blood Blood Culture - Preliminary NO GROWTH AFTER 3 DAYS 12/19/17 20:30 Blood Blood Culture - Preliminary NO GROWTH AFTER 3 DAYS Most Recent Lab Values WBC 4.7 10^3/ul (4.5-11.0) 12/23/17 06:40 RBC 3.02 10^6/uL (3.5-6.1) L 12/23/17 06:40 Hgb 8.6 g/dL (12.0-16.0) L 12/23/17 06:40 Hct 25.5 % (36.0-48.0) L 12/23/17 06:40 MCV 84.4 fl (80.0-105.0) 12/23/17 06:40 MCH 28.5 pg (25.0-35.0) 12/23/17 06:40 MCHC 33.7 g/dl (31.0-37.0) 12/23/17 06:40 RDW 15.2 % (11.5-14.5) H 12/23/17 06:40 Plt Count 229 10^3/uL (120.0-450.0) 12/23/17 06:40 MPV 8.9 fl (7.0-11.0) 12/23/17 06:40 Gran % 58.0 % (50.0-68.0) 12/23/17 06:40 Lymph % (Auto) 31.1 % (22.0-35.0) 12/23/17 06:40 Ocean % (Auto) 7.7 % (1.0-6.0) H 12/23/17 06:40 Eos % (Auto) 3.0 % (1.5-5.0) 12/23/17 06:40 Baso % (Auto) 0.2 % (0.0-3.0) 12/23/17 06:40 Gran # 2.73 (1.4-6.5) 12/23/17 06:40 Lymph # (Auto) 1.5 (1.2-3.4) 12/23/17 06:40 Ocean # (Auto) 0.4 (0.1-0.6) 12/23/17 06:40 Eos # (Auto) 0.1 (0.0-0.7) 12/23/17 06:40 Baso # (Auto) 0.01 K/mm3 (0.0-2.0) 12/23/17 06:40 PT 14.4 SECONDS (9.4-12.5) H 12/21/17 06:40 INR 1.25 12/21/17 06:40 APTT 56.9 Seconds (25.1-36.5) H 12/21/17 06:40 pO2 29 mm/Hg (30-55) L 12/19/17 20:30 VBG pH 7.41 (7.32-7.43) 12/19/17 20:30 VBG pCO2 47.0 (40-60) 12/19/17 20:30 VBG HCO3 29.8 mmol/l (21-28) H 12/19/17 20:30 VBG Total CO2 31.2 mmol.L (22-28) H 12/19/17 20:30 VBG O2 Sat (Calc) 61.7 % (40-65) 12/19/17 20:30 VBG Base Excess 4.3 mmol/L (0.0-2.0) H 12/19/17 20:30 VBG Potassium 3.5 mmol/L (3.6-5.2) L 12/19/17 20:30 Sodium 137.0 mmol/L (132-148) 12/19/17 20:30 Chloride 104.0 mmol/L (98-107) 12/19/17 20:30 Glucose 99 mg/dl (65-105) 12/19/17 20:30 Lactate 1.4 mmol/L (0.7-2.1) 12/19/17 20:30 FiO2 21.0 % 12/19/17 20:30 Sodium 138 mmol/L (132-148) 12/23/17 06:40 Potassium 3.9 mmol/L (3.6-5.0) 12/23/17 06:40 Chloride 103 mmol/L (98-107) 12/23/17 06:40 Carbon Dioxide 31 mmol/L (21-33) 12/23/17 06:40 Anion Gap 8 (10-20) L 12/23/17 06:40 BUN 6 mg/dL (7-21) L 12/23/17 06:40 Creatinine 0.6 mg/dl (0.7-1.2) L 12/23/17 06:40 Est GFR ( Amer) > 60 12/23/17 06:40 Est GFR (Non-Af Amer) > 60 12/23/17 06:40 Random Glucose 97 mg/dL (70-110) 12/23/17 06:40 Calcium 8.2 mg/dL (8.4-10.5) L 12/23/17 06:40 Phosphorus 2.5 mg/dL (2.5-4.5) 12/23/17 06:40 Magnesium 2.1 mg/dL (1.7-2.2) 12/23/17 06:40 Total Bilirubin 0.2 mg/dL (0.2-1.3) 12/23/17 06:40 AST 57 U/L (14-36) H D 12/23/17 06:40 ALT 70 U/L (7-56) H 12/23/17 06:40 Alkaline Phosphatase 76 U/L (38-126) 12/23/17 06:40 Troponin I < 0.01 ng/mL 12/22/17 06:30 Total Protein 5.5 g/dL (5.8-8.3) L 12/23/17 06:40 Albumin 2.8 g/dL (3.0-4.8) L 12/23/17 06:40 Globulin 2.7 gm/dL 12/23/17 06:40 Albumin/Globulin Ratio 1.0 (1.1-1.8) L 12/23/17 06:40 Lipase 45 U/L (23-300) 12/19/17 20:30 Venous Blood Potassium 3.5 mmol/L (3.6-5.2) L 12/19/17 20:30 Urine Color Light yellow (YELLOW) 12/19/17 21:30 Urine Appearance Clear (CLEAR) 12/19/17 21:30 Urine pH 7.0 (4.7-8.0) 12/19/17 21:30 Ur Specific [place] 1.010 (1.005-1.035) 12/19/17 21:30 Urine Protein Trace mg/dL (<30 mg/dL) H 12/19/17 21:30 Urine Glucose (UA) Negative mg/dL (NEGATIVE) 12/19/17 21:30 Urine Ketones Negative mg/dL (NEGATIVE) 12/19/17 21:30 Urine Blood Negative (NEGATIVE) 12/19/17 21:30 Urine Nitrate Negative (NEGATIVE) 12/19/17 21:30 Urine Bilirubin Negative (NEGATIVE) 12/19/17 21:30 Urine Urobilinogen 0.2 E.U./dL (<1 E.U./dL) 12/19/17 21:30 Ur Leukocyte Esterase Negative [place]/uL (NEGATIVE) 12/19/17 21:30 Urine RBC 0 - 2 /hpf (0-2) 12/19/17 21:30 Urine WBC 1 - 3 /hpf (0-6) 12/19/17 21:30 Ur Epithelial Cells Many /hpf (0-5) 12/19/17 21:30 Amorphous Sediment Few 12/19/17 21:30 Urine Bacteria Many (NEG) 12/19/17 21:30 Urine Other Uyeast 12/19/17 21:30 Blood Type O POSITIVE 12/21/17 07:00 Blood Type Confirm O POSITIVE 12/21/17 08:00 Antibody Screen Negative 12/21/17 07:00 BBK History Checked No verified bt 12/21/17 07:00 - Hospital Course Hospital Course: Pt is a 47 year old female presents to the Emergency department complaining of constant abdominal pain x 2 days secondary to cholecystitis. CT of the abdomen revealed acute cholecystitis. Pt was consulted by surgery who recommended a cholecystectomy. Pt had laparoscopic cholecystectomy and lysis of adhesions. Pt had abdominal pain post op and was stared on antibiotics, was given fluids, zofran, control of pain. Electrolytes monitored and repleted. Fibromyalgia was maintained on home meds- amitriptyline, cyclobenzaprine, gabapentin. Pt is currently afebrile, her vitals are stable. Drain from surgery was removed and the wound site is clean and with minimal erythema. - Date & Time of H&P Date of H&P: 12/23/17 Time of H&P: 17:37 Discharge Exam - Head Exam Head Exam: ATRAUMATIC, NORMOCEPHALIC - ENT Exam ENT Exam: Mucous Membranes Moist - Respiratory Exam Respiratory Exam: NORMAL BREATHING PATTERN. absent: Respiratory Distress - Cardiovascular Exam Cardiovascular Exam: RRR, +S1, +S2 - GI/Abdominal Exam GI & Abdominal Exam: Normal Bowel Sounds, Unremarkable Discharge Plan - Discharge Medications Prescriptions: Ciprofloxacin HCl [Cipro] 500 mg PO BID #14 tab Docusate Sodium/Sennosides A [Senokot S 50 MG-8.6 MG] 1 tab PO BID #14 tab Gabapentin [Neurontin] 800 mg PO TID #90 cap Ibuprofen 600 mg PO Q6 PRN #8 tablet PRN Reason: Pain, Moderate (4-7) Metronidazole [Flagyl] 500 mg PO Q8 #21 tablet - Follow Up Plan Condition: STABLE Disposition: HOME/ ROUTINE Instructions: Cholecystectomy, Laparoscopic Surgery, Laceration Repair With Glue (DC), Abdominal Pain (ED) Additional Instructions: 1. please follow up with your primary care physician within 1 week 2. please resume all of your home medications, and take a directed 3. please follow up with your surgeon as an out patient 4. if your symptoms return or worsen, please go directly to the nearest emergency department <Gabriella Oshea - Last Filed: 12/24/17 07:29> Provider - Provider Date of Admission: 12/20/17 00:49 Attending physician: Gabriella Oshea MD Hospital Course - Lab Results Lab Results: Micro Results 12/19/17 21:00 Blood Blood Culture - Preliminary NO GROWTH AFTER 4 DAYS 12/19/17 20:30 Blood Blood Culture - Preliminary NO GROWTH AFTER 4 DAYS Most Recent Lab Values WBC 4.7 10^3/ul (4.5-11.0) 12/23/17 06:40 RBC 3.02 10^6/uL (3.5-6.1) L 12/23/17 06:40 Hgb 8.6 g/dL (12.0-16.0) L 12/23/17 06:40 Hct 25.5 % (36.0-48.0) L 12/23/17 06:40 MCV 84.4 fl (80.0-105.0) 12/23/17 06:40 MCH 28.5 pg (25.0-35.0) 12/23/17 06:40 MCHC 33.7 g/dl (31.0-37.0) 12/23/17 06:40 RDW 15.2 % (11.5-14.5) H 12/23/17 06:40 Plt Count 229 10^3/uL (120.0-450.0) 12/23/17 06:40 MPV 8.9 fl (7.0-11.0) 12/23/17 06:40 Gran % 58.0 % (50.0-68.0) 12/23/17 06:40 Lymph % (Auto) 31.1 % (22.0-35.0) 12/23/17 06:40 Ocean % (Auto) 7.7 % (1.0-6.0) H 12/23/17 06:40 Eos % (Auto) 3.0 % (1.5-5.0) 12/23/17 06:40 Baso % (Auto) 0.2 % (0.0-3.0) 12/23/17 06:40 Gran # 2.73 (1.4-6.5) 12/23/17 06:40 Lymph # (Auto) 1.5 (1.2-3.4) 12/23/17 06:40 Ocean # (Auto) 0.4 (0.1-0.6) 12/23/17 06:40 Eos # (Auto) 0.1 (0.0-0.7) 12/23/17 06:40 Baso # (Auto) 0.01 K/mm3 (0.0-2.0) 12/23/17 06:40 PT 14.4 SECONDS (9.4-12.5) H 12/21/17 06:40 INR 1.25 12/21/17 06:40 APTT 56.9 Seconds (25.1-36.5) H 12/21/17 06:40 pO2 29 mm/Hg (30-55) L 12/19/17 20:30 VBG pH 7.41 (7.32-7.43) 12/19/17 20:30 VBG pCO2 47.0 (40-60) 12/19/17 20:30 VBG HCO3 29.8 mmol/l (21-28) H 12/19/17 20:30 VBG Total CO2 31.2 mmol.L (22-28) H 12/19/17 20:30 VBG O2 Sat (Calc) 61.7 % (40-65) 12/19/17 20:30 VBG Base Excess 4.3 mmol/L (0.0-2.0) H 12/19/17 20:30 VBG Potassium 3.5 mmol/L (3.6-5.2) L 12/19/17 20:30 Sodium 137.0 mmol/L (132-148) 12/19/17 20:30 Chloride 104.0 mmol/L (98-107) 12/19/17 20:30 Glucose 99 mg/dl (65-105) 12/19/17 20:30 Lactate 1.4 mmol/L (0.7-2.1) 12/19/17 20:30 FiO2 21.0 % 12/19/17 20:30 Sodium 138 mmol/L (132-148) 12/23/17 06:40 Potassium 3.9 mmol/L (3.6-5.0) 12/23/17 06:40 Chloride 103 mmol/L (98-107) 12/23/17 06:40 Carbon Dioxide 31 mmol/L (21-33) 12/23/17 06:40 Anion Gap 8 (10-20) L 12/23/17 06:40 BUN 6 mg/dL (7-21) L 12/23/17 06:40 Creatinine 0.6 mg/dl (0.7-1.2) L 12/23/17 06:40 Est GFR ( Amer) > 60 12/23/17 06:40 Est GFR (Non-Af Amer) > 60 12/23/17 06:40 Random Glucose 97 mg/dL (70-110) 12/23/17 06:40 Calcium 8.2 mg/dL (8.4-10.5) L 12/23/17 06:40 Phosphorus 2.5 mg/dL (2.5-4.5) 12/23/17 06:40 Magnesium 2.1 mg/dL (1.7-2.2) 12/23/17 06:40 Total Bilirubin 0.2 mg/dL (0.2-1.3) 12/23/17 06:40 AST 57 U/L (14-36) H D 12/23/17 06:40 ALT 70 U/L (7-56) H 12/23/17 06:40 Alkaline Phosphatase 76 U/L (38-126) 12/23/17 06:40 Troponin I < 0.01 ng/mL 12/22/17 06:30 Total Protein 5.5 g/dL (5.8-8.3) L 12/23/17 06:40 Albumin 2.8 g/dL (3.0-4.8) L 12/23/17 06:40 Globulin 2.7 gm/dL 12/23/17 06:40 Albumin/Globulin Ratio 1.0 (1.1-1.8) L 12/23/17 06:40 Lipase 45 U/L (23-300) 12/19/17 20:30 Venous Blood Potassium 3.5 mmol/L (3.6-5.2) L 12/19/17 20:30 Urine Color Light yellow (YELLOW) 12/19/17 21:30 Urine Appearance Clear (CLEAR) 12/19/17 21:30 Urine pH 7.0 (4.7-8.0) 12/19/17 21:30 Ur Specific [place] 1.010 (1.005-1.035) 12/19/17 21:30 Urine Protein Trace mg/dL (<30 mg/dL) H 12/19/17 21:30 Urine Glucose (UA) Negative mg/dL (NEGATIVE) 12/19/17 21:30 Urine Ketones Negative mg/dL (NEGATIVE) 12/19/17 21:30 Urine Blood Negative (NEGATIVE) 12/19/17 21:30 Urine Nitrate Negative (NEGATIVE) 12/19/17 21:30 Urine Bilirubin Negative (NEGATIVE) 12/19/17 21:30 Urine Urobilinogen 0.2 E.U./dL (<1 E.U./dL) 12/19/17 21:30 Ur Leukocyte Esterase Negative [place]/uL (NEGATIVE) 12/19/17 21:30 Urine RBC 0 - 2 /hpf (0-2) 12/19/17 21:30 Urine WBC 1 - 3 /hpf (0-6) 12/19/17 21:30 Ur Epithelial Cells Many /hpf (0-5) 12/19/17 21:30 Amorphous Sediment Few 12/19/17 21:30 Urine Bacteria Many (NEG) 12/19/17 21:30 Urine Other Uyeast 12/19/17 21:30 Blood Type O POSITIVE 12/21/17 07:00 Blood Type Confirm O POSITIVE 12/21/17 08:00 Antibody Screen Negative 12/21/17 07:00 BBK History Checked No verified bt 12/21/17 07:00 Discharge Exam - Head Exam Head Exam: NORMAL INSPECTION - Respiratory Exam Respiratory Exam: Clear to PA & Lateral. absent: Rhonchi, Wheezes - Cardiovascular Exam Cardiovascular Exam: REGULAR RHYTHM - GI/Abdominal Exam GI & Abdominal Exam: Normal Bowel Sounds, Soft, Tenderness (mid at surgery site). absent: Guarding - Extremities Exam Extremities exam: normal inspection - Neurological Exam Neurological exam: Alert, Oriented x3 Attending/Attestation - Attestation I have personally seen and examined this patient.: Yes I have fully participated in the care of the patient.: Yes I have reviewed all pertinent clinical information, including history, physical exam and plan: Yes Notes (Text): 12/23/17 47 year old female who presented with right upper quadrant pain. She was found to have acute cholecytitis. She was NPO and started on iv antibiotics. She was seen by surgery and underwent laparoscopic cholecystectomy. Drain was removed today by surgery. She is tolerating meals and had bowel movement. Reports her pain has improved. She had fever yesterday but is now afebrile x 24 hrs. LFTs are improving. Patient is cleared for discharge as per surgery. Follow up with pmd. Follow up with surgery. Repeat LFTs with primary as outpatient. Continue with antibiotics as prescribed. Gabriella Oshea MD Hospitalist.
== END 2017-12-23 18:34 | disposition home or self-care (01) | DRG 419 ==
LOC: ED 19:12 → ERH 12-20 00:49 → 3RSO 12-20 02:56
PROVIDERS: ADMIT Internal Medicine; ATTEND Internal Medicine
PROC: 0FT44ZZ Resection of Gallbladder, Percutaneous Endoscopic Approach (ICD-10-PCS; principal; 2017-12-21 11:45)
PROC: 0DNU4ZZ Release Omentum, Percutaneous Endoscopic Approach (ICD-10-PCS; 2017-12-21 11:45)
DX: K80.00 Calculus of gallbladder with acute cholecystitis without obstruction (principal); K82.8 Other specified diseases of gallbladder; K76.0 Fatty (change of) liver, not elsewhere classified; M79.7 Fibromyalgia; I10 Essential (primary) hypertension; K66.0 Peritoneal adhesions (postprocedural) (postinfection); G47.33 Obstructive sleep apnea (adult) (pediatric); Z87.891 Personal history of nicotine dependence; G89.18 Other acute postprocedural pain; Z85.43 Personal history of malignant neoplasm of ovary; Z90.710 Acquired absence of both cervix and uterus; Z92.21 Personal history of antineoplastic chemotherapy; Z80.0 Family history of malignant neoplasm of digestive organs